=== PATIENT | female | born 1990 | race Caucasian/White ===

== ENCOUNTER 2016-12-29 13:26 | Inpatient (IN) ==
[2016-12-29 14:46] LABS: Basophils % 0.3 %; Eosinophils # 0.1 K/mcL (0.0-0.6); Eosinophils % 1.7 %; Hematocrit 36.5 % (35.3-44.9); Hemoglobin 12.1 g/dL (11.5-15.4); Immature Granulocytes % 0.3 % (0-4); Immature Platelets 3.2 % (1.1-6.1); Lymphocytes # 2.6 K/mcL (0.6-4.6); Mean Corpuscular HGB Conc 33.2 g/dL (31.6-35.5); Mean Corpuscular Hemoglobin 28.9 pg (28.0-33.3); Mean Corpuscular Volume 87.1 fL (83.0-100.0); Mean Platelet Volume 9.4 fL (9.4-12.4); Monocytes # 0.5 K/mcL (0.0-1.3); Monocytes % 6.9 %; Neutrophils # 3.8 K/mcL (1.6-8.9); Platelet Count 208 K/mcL (140-400); Red Blood Count 4.19 M/mcL (3.82-4.97); Segmented Neutrophils % 53.8 %
[2016-12-29 15:06] LABS: Alanine Aminotransferase 16 Units/L (0-55); Albumin 3.9 g/dL (3.5-5.0); Albumin/Globulin Ratio 1.3 (1.1-2.2); Alkaline Phosphatase 74 Units/L (38-126); Amylase 60 Units/L (25-125); Aspartate Amino Transferase 19 Units/L (5-34); BUN/Creatinine Ratio 13 (6-26); Bilirubin,Direct 0.2 mg/dL (0.0-0.5); Bilirubin,Indirect 0.2 mg/dL (0.0-1.2); Bilirubin,Total 0.4 mg/dL (0.2-1.2); Blood Urea Nitrogen 10 mg/dL (7-20); Calcium 9.3 mg/dL (8.6-10.8); Carbon Dioxide 26 mEq/L (19-29); Chloride 107 mEq/L (98-109); Globulin 3.1 g/dL (2.4-3.5); Glucose 72 mg/dL (70-99); Lipase 32 Units/L (8-78); Osmolality,Calculated 288 (280-300); Potassium 3.9 mEq/L (3.5-4.5); Sodium 140 mEq/L (136-145); eGFR For African Americans > 60 (> 60); eGFR For Non-African Americans > 60 (> 60)
--- NOTE | 2016-12-29 15:09 | Emergency Department Note ---
Disposition Clinical Impression: Acute cholecystitis, Abdominal pain, Gallstones Disposition: Admitted As Inpatient Referrals: NO,PCP [Non-Partnered Physician] - Forms: Work/School Release, ED Satisfaction Letter General Adult HPI - General Chief complaint: ED Abdominal Pain Stated complaint: abd pain, "I think its my gallbladder" Time Seen by Provider: 12/29/16 15:09 Source: patient - History of Present Illness HPI Narrative: 26-year-old female reports to the emergency department complaining of abdominal pain mostly in the right upper abdomen. She thinks she has a gallbladder problem. The patient's had no recent trauma or surgery. She denies any vaginal bleeding or discharge. There is no history of currently. The patient has not had bloody urine. She does not have urinary symptoms. She states she has a history of a kidney stone. She does not describe flank or back pain. She has had 3 C-sections but no other abdominal surgery. There is no history of fever rash or chest pain. She has a history of asthma. She has no shortness of breath currently. There is no history of leg swelling or pain or coughing up blood. No rashes on the abdomen or chest. No bloody stool E patient's bowel pattern has been normal. The patient has had no vomiting or diarrhea. The patient describes right upper abdominal pain which began last evening. Pain Scale: 4 - Related Data Home Medications Medication Instructions Recorded Confirmed Cetirizine HCl [Zyrtec] 5 mg PO DAILY 07/23/15 07/23/15 Levothyroxine [Synthroid] 175 mcg PO 0630 07/23/15 07/23/15 Vit/FA 1 each PO DAILY 07/23/15 07/23/15 Previous Rx's Medication Instructions Recorded MetroNIDAZOLE [Metrogel-Vaginal] 70 gm VG DAILY #1 gel.w.appl 07/23/15 Terconazole [Terazol 7] 45 gm VG HS #7 cream.appl 07/23/15 Docusate [Colace] 100 mg PO BID #60 capsule 09/05/15 Ibuprofen [Motrin] 600 mg PO Q6HR PRN #60 tablet 09/05/15 OxyCODONE/APAP 5/325 [Percocet 1 each PO Q6HR PRN #30 tablet 09/05/15 5/325] Benzonatate [Tessalon] 100 mg PO TID #30 capsule 02/26/16 Ibuprofen [Motrin] 600 mg PO TID PRN #30 tab 02/26/16 Promethazine/Codeine 5 ml PO Q4HR #240 ml 02/26/16 [Phenergan/Codeine] Allergies Allergy/AdvReac Type Severity Reaction Status Date / Time cephalexin [From Keflex] Allergy Hives Verified 07/23/15 17:50 loratadine [From Claritin] Allergy Hives Verified 08/31/15 21:52 All systems ED: reviewed and negative except as stated. Past Medical History - Past Medical History Medical history: Reports: asthma, thyroid disease, other Surgical history: Reports: other Psychiatric history: Reports: anxiety, depression - Social History Smoking Status: Former smoker Smokeless Tobacco Status: No Alcohol use: Reports: none Drug use: Reports: none Physical Exam - General Limitations: no limitations General appearance: alert, in no apparent distress - Head Head exam: atraumatic, normocephalic, normal inspection - Eye Eye exam: Present: normal appearance, PERRL, EOMI. Absent: scleral icterus, conjunctival injection, miosis, mydriasis - ENT ENT exam: normal exam, normal oropharynx, mucous membranes moist, normal external ear exam - Neck Neck exam: Present: normal inspection, full ROM, trachea midline - Chest Chest inspection: Present: symmetric chest wall rise. Absent: tenderness - Respiratory Respiratory exam: Present: normal lung sounds bilaterally. Absent: respiratory distress - Cardiovascular Cardiovascular exam: Present: regular rate, normal rhythm, normal heart sounds - Abdominal Exam Abdominal exam: Present: soft, tenderness, normal bowel sounds. Absent: distention, guarding, rebound, rigidity, Gautam's sign, Rovsing's sign, tenderness at McBurney's Point, pulsatile mass Abdominal tenderness: Present: RUQ, mild - Extremities Exam Extremities exam: Present: normal inspection, full ROM, normal capillary refill. Absent: tenderness, pedal edema, joint swelling, calf tenderness - Expanded Lower Extremity Exam Neurovascular/Tendon exam: Absent: motor deficit, sensory deficit, tendon deficit, extremity cold to touch - Back Exam Back exam: Present: normal inspection, full ROM. Absent: tenderness, CVA tenderness (R), CVA tenderness (L), vertebral tenderness - Neurological Exam Neurological exam: Present: alert, oriented X3, CN II-XII intact. Absent: motor sensory deficit - Psychiatric Psychiatric exam: Present: normal affect, normal mood - Skin Skin exam: Present: warm, dry, intact, normal color. Absent: rash, cyanosis, diaphoresis, erythema, pallor, mottled Course Vital Signs Temperature 97.7 F 12/29/16 13:32 Pulse Rate 68 12/29/16 13:32 Respiratory Rate 16 12/29/16 13:32 Blood Pressure 120/73 12/29/16 13:32 O2 Sat by Pulse Oximetry 100 12/29/16 13:32 Temperature 97.7 F 12/29/16 13:32 Pulse Rate 68 12/29/16 13:32 Respiratory Rate 16 12/29/16 13:32 Blood Pressure 120/73 12/29/16 13:32 O2 Sat by Pulse Oximetry 100 12/29/16 13:32 Oxygen Delivery Oxygen Delivery Room Air Medical Decision Making - MDM Narrative Medical decision making narrative: The patient describes significant right upper quadrant abdominal discomfort which began last evening. Her laboratory testing is unrevealing, however her CT shows concerning findings regarding acute cholecystitis. The patient reports she has been very uncomfortable. Anti-emetics and analgesics have been ordered as well as IV fluid. I discussed the case with Dr. Zhang general surgeon who will admit the patient for further evaluation and possible surgical intervention. A gram of Invanz was given IV. Normal saline was ordered. The patient is currently stable. She is agreeable to hospitalization and potential surgery. - Lab Data Lab results reviewed: Yes I reviewed the patient's lab results. Result diagrams: 12/29/16 14:39 12/29/16 14:39 Lab Results 12/29/16 12/29/16 12/29/16 Range/Units 14:39 14:39 15:16 WBC 7.1 (4.3-11.1) K/mcL RBC 4.19 (3.82-4.97) M/mcL Hgb 12.1 (11.5-15.4) g/dL Hct 36.5 (35.3-44.9) % MCV 87.1 (83.0-100.0) fL MCH 28.9 (28.0-33.3) pg MCHC 33.2 (31.6-35.5) g/dL RDW 13.0 (11.5-14.5) % Plt Count 208 (140-400) K/mcL MPV 9.4 (9.4-12.4) fL Immature Gran % 0.3 (0-4) % Seg Neutrophils % 53.8 % Lymphocytes % 37.0 % Monocytes % 6.9 % Eosinophils % 1.7 % Basophils % 0.3 % Neutrophils # 3.8 (1.6-8.9) K/mcL Lymphocytes # 2.6 (0.6-4.6) K/mcL Monocytes # 0.5 (0.0-1.3) K/mcL Eosinophils # 0.1 (0.0-0.6) K/mcL Basophils # 0.0 (0.0-0.2) K/mcL Immature Plt Fraction 3.2 (1.1-6.1) % Sodium 140 (136-145) mEq/L Potassium 3.9 (3.5-4.5) mEq/L Chloride 107 (98-109) mEq/L Carbon Dioxide 26 (19-29) mEq/L BUN 10 (7-20) mg/dL Creatinine 0.77 (0.57-1.11) mg/dL Est GFR ( Amer) > 60 (> 60) Est GFR (Non-Af Amer) > 60 (> 60) BUN/Creatinine Ratio 13 (6-26) Glucose 72 (70-99) mg/dL Calculated Osmolality 288 (280-300) Calcium 9.3 (8.6-10.8) mg/dL Total Bilirubin 0.4 (0.2-1.2) mg/dL Direct Bilirubin 0.2 (0.0-0.5) mg/dL Indirect Bilirubin 0.2 (0.0-1.2) mg/dL AST 19 (5-34) Units/L ALT 16 (0-55) Units/L Alkaline Phosphatase 74 (38-126) Units/L C-Reactive Protein 1 (Less than 5) mg/L Serum Total Protein 7.0 (6.0-8.3) g/dL Albumin 3.9 (3.5-5.0) g/dL Globulin 3.1 (2.4-3.5) g/dL Albumin/Globulin Ratio 1.3 (1.1-2.2) Amylase 60 (25-125) Units/L Lipase 32 (8-78) Units/L Urine Color Yellow (Yellow) Urine Clarity Cloudy A (Clear) Urine pH 6.0 (5.0-8.0) pH Units Ur Specific [place] 1.027 H (1.010-1.025) Urine Protein Negative (Neg-Trace) mg/dL Urine Glucose (UA) Normal (Normal) mg/dL Urine Ketones Negative (Negative) mg/dL Urine Blood Negative (Negative) Urine Nitrite Negative (Negative) Urine Bilirubin Negative (Negative) Urine Urobilinogen Normal (Normal) mg/dL Ur Leukocyte Esterase Negative (Negative) Urine Microscopic RBC 0-3 (0-3) per hpf Urine Microscopic WBC 0-3 (0-3) per hpf Ur Squamous Epith Cells Many H (None-Few) per lpf Calcium Oxalate Crystal Present Urine Bacteria Moderate H (None-Few) per hpf Hyaline Casts None Seen (None-Few) per lpf Urine Mucus Many H (Few) Ur Culture Indicated? NO (NO) Urine Test (Negative) 12/29/16 Range/Units 15:16 WBC (4.3-11.1) K/mcL RBC (3.82-4.97) M/mcL Hgb (11.5-15.4) g/dL Hct (35.3-44.9) % MCV (83.0-100.0) fL MCH (28.0-33.3) pg MCHC (31.6-35.5) g/dL RDW (11.5-14.5) % Plt Count (140-400) K/mcL MPV (9.4-12.4) fL Immature Gran % (0-4) % Seg Neutrophils % % Lymphocytes % % Monocytes % % Eosinophils % % Basophils % % Neutrophils # (1.6-8.9) K/mcL Lymphocytes # (0.6-4.6) K/mcL Monocytes # (0.0-1.3) K/mcL Eosinophils # (0.0-0.6) K/mcL Basophils # (0.0-0.2) K/mcL Immature Plt Fraction (1.1-6.1) % Sodium (136-145) mEq/L Potassium (3.5-4.5) mEq/L Chloride (98-109) mEq/L Carbon Dioxide (19-29) mEq/L BUN (7-20) mg/dL Creatinine (0.57-1.11) mg/dL Est GFR ( Amer) (> 60) Est GFR (Non-Af Amer) (> 60) BUN/Creatinine Ratio (6-26) Glucose (70-99) mg/dL Calculated Osmolality (280-300) Calcium (8.6-10.8) mg/dL Total Bilirubin (0.2-1.2) mg/dL Direct Bilirubin (0.0-0.5) mg/dL Indirect Bilirubin (0.0-1.2) mg/dL AST (5-34) Units/L ALT (0-55) Units/L Alkaline Phosphatase (38-126) Units/L C-Reactive Protein (Less than 5) mg/L Serum Total Protein (6.0-8.3) g/dL Albumin (3.5-5.0) g/dL Globulin (2.4-3.5) g/dL Albumin/Globulin Ratio (1.1-2.2) Amylase (25-125) Units/L Lipase (8-78) Units/L Urine Color (Yellow) Urine Clarity (Clear) Urine pH (5.0-8.0) pH Units Ur Specific [place] (1.010-1.025) Urine Protein (Neg-Trace) mg/dL Urine Glucose (UA) (Normal) mg/dL Urine Ketones (Negative) mg/dL Urine Blood (Negative) Urine Nitrite (Negative) Urine Bilirubin (Negative) Urine Urobilinogen (Normal) mg/dL Ur Leukocyte Esterase (Negative) Urine Microscopic RBC (0-3) per hpf Urine Microscopic WBC (0-3) per hpf Ur Squamous Epith Cells (None-Few) per lpf Calcium Oxalate Crystal Urine Bacteria (None-Few) per hpf Hyaline Casts (None-Few) per lpf Urine Mucus (Few) Ur Culture Indicated? (NO) Urine Test Negative (Negative) - Radiology Data Radiology results reviewed: Yes I reviewed the patient's radiology results.
[2016-12-29 15:27] LABS: Bilirubin,Urine Negative (Negative); Blood,Urine Negative (Negative); Clarity,Urine Cloudy (Clear); Color,Urine Yellow (Yellow); Glucose,Urine (UA) Normal (Normal); Ketones,Urine Negative (Negative); Leukocyte Esterase,Urine Negative (Negative); Nitrite,Urine Negative (Negative); Protein,Urine Negative (Neg-Trace); Specific Gravity,Urine 1.027 (1.010-1.025); Urobilinogen,Urine Normal (Normal)
[2016-12-29 15:30] LABS: Bacteria,Urine Moderate per hpf (None-Few); Hyaline Casts,Urine None Seen per lpf (None-Few); Squamous Epithelial Cell,Urine Many per lpf (None-Few); WBC,Urine 0-3 per hpf (0-3)
[2016-12-29 16:12] LABS: Mucus,Urine Many (Few)
[2016-12-29 16:13] LABS: Calcium Oxalate Crystals,Urine Present; RBC,Urine 0-3 per hpf (0-3)
[2016-12-29 17:53] LABS: C-Reactive Protein 1 mg/L (Less than 5)
[2016-12-29] MEDS ORDERED: *HR* HYDROmorphone (PF) 1 MG/ML SYRINGE IVP ONE (18:36)
[2016-12-29] MEDS ORDERED: 0.9 % Sodium Chloride 1,000 ML IVC ONE (18:36)
[2016-12-29] MEDS ORDERED: Ondansetron 4 MG/2 ML VIAL IVP ONE (18:36)
[2016-12-29] MEDS ORDERED: Ertapenem 1,000 MG in 0.9 % Sodium Chloride Mini Bag 100 ML IVPB ONE (19:00)
[2016-12-29] MEDS ORDERED: *HR* Morphine 2 MG/ML SYRINGE IVP PRN (20:47)
[2016-12-29] MEDS ORDERED: *HR* Promethazine 25 MG/ML VIAL IVP PRN (20:49)
[2016-12-29] MEDS: 0.9 % Sodium Chloride 1,000 ML IVC SCH (21:44)
--- NOTE | 2016-12-30 09:12 | General Surg History&Physical ---
<Davey Chen - Last Filed: 12/30/16 09:05> Date of Encounter: 12/30/16 Time of Encounter: 08:40 Assessment and Plan (1) Acute cholecystitis Current Visit: Yes Status: Acute Plan for laparascopic cholecystectomy today. Continue Ertapenem Continue IV fluids at 80ml/hr Continue anti-emetics Supportive care/pain control History of Present Illness Chief complaint: abdominal pain HPI: Ms. Cintron is a 26 year old female that presented to the ED for abdominal pain starting at approx 16:30 on 12/28/15. Patient states the pain is across uppper abdomen, but worse in the RUQ. Ms. Cintron states she has similar episodes 1-2 times per year for the past 7 years that typically resolve on their own within a day, this time it did not. She states the pain began while eating a poptart, pain is worse if she lays flat, instead of curling up. She admits to nausea, but denies vomiting, fever, dizziness, chest pain, shortness of breath, diarrhea , changes in stool. PMHx of exercise induced asthma, hypothyroidism, anxiety(not medicated). Past Med Surg Social Fam HX - Past Medical History Source: patient Medical history: asthma, thyroid disease, other Psychiatric history: anxiety, depression - Past Surgical History Surgical History: (x3), other (tubal ligation, tonsilectomy) - Social History Smoking Status: Former smoker (13+ years ago) Smokeless Tobacco Status: No Alcohol use: none Drug use: none - Family History Mother Hx Family GI Disorders: Yes Hx Family Endocrine Disorder: Yes (danielle) Father Family Member Ethnicity: Non- Living Status: Still Living Hx Family Cardiac Disorders: Yes Hx Family Respiratory Disorders: No Hx Family Cancer: No Hx Family GI Disorders: No Hx Family Endocrine Disorder: No Hx Family Neuromuscular Disorders: No Hx Family Neurologic Disorders: No Hx Family HEENT Disorders: No Hx Family Autoimmune Disorders: No Grandmother Hx Family Cancer: Yes (pancreatic) Maternal Name: maternal grandmother Hx Family Cancer: Yes (uterine) Medications and Allergies Cetirizine HCl [Zyrtec] 5 mg PO DAILY 07/23/15 [History] Levothyroxine [Synthroid] 175 mcg PO DAILY 07/23/15 [History] OxyCODONE/APAP 5/325 [Percocet 5/325 MG] 1 each PO Q6HR PRN #24 tablet 12/30/16 [Rx] Allergies cephalexin [From Keflex] Allergy (Verified 07/23/15 17:50) Hives loratadine [From Claritin] Allergy (Verified 08/31/15 21:52) Hives Review of Systems All systems PM: A 10-system review of systems was performed and is negative for pertinent findings except as documented above in the HPI. - Constitutional no chills, no fever(s) - EENT Nose, mouth and throat: no dizziness, no dysphagia - Cardiovascular no chest pain, no dyspnea - Respiratory no cough, no dyspnea - Gastrointestinal abdominal pain, nausea, no belching, no constipation, no diarrhea, no heartburn , no vomiting - Genitourinary Genitourinary: no dysuria, no flank pain, no hematuria - Musculoskeletal no back pain, no muscle weakness - Neurological no confusion, no dizziness, no syncope - Endocrine cold intolerance General Surgery Exam Initial Vital Signs Temp Pulse Resp BP Pulse Ox 97.7 F 68 16 120/73 100 12/29/16 13:32 12/29/16 13:32 12/29/16 13:32 12/29/16 13:32 12/29/16 13:32 - General physical appearance well developed, well nourished, no distress - Eyes normal ocular movement - ENT normal mucosa, atraumatic, normocephalic - Neck trachea midline - Respiratory normal respiratory effort, clear to auscultation - Cardiovascular Cardiovascular exam: Present: RRR - Abdomen Abdomen general surgery: Present: bowel sounds present, soft, tender (epigastric ) - Integumentary Integumentary general surgery: Present: warm and dry, no abnormal pigmentation - Neurologic Present: CN 2-12 grossly intact - Psychiatric Psychiatric general surgery: Present: A&Ox3, speech is normal, memory intact Results - Labs 12/29/16 14:39 12/29/16 14:39 Abnormal lab results Urine Clarity Cloudy (Clear) A 12/29/16 15:16 Ur Specific [place] 1.027 (1.010-1.025) H 12/29/16 15:16 Ur Squamous Epith Cells Many per lpf (None-Few) H 12/29/16 15:16 Urine Bacteria Moderate per hpf (None-Few) H 12/29/16 15:16 Urine Mucus Many (Few) H 12/29/16 15:16 All other labs normal. <Shekhar Zhang E - Last Filed: 12/31/16 15:36> Assessment and Plan (1) Acute cholecystitis Current Visit: Yes Status: Acute The assessment and plan as outlined above was discussed with the patient and/or family members who expressed understanding and agreement. All questions were answered. Plan for lap danielle with discharge today or tomorrow. History of Present Illness HPI: Ms. Cintron is a 26 year old female Review of Systems All systems PM: A 10-system review of systems was performed and is negative for pertinent findings except as documented above in the HPI. General Surgery Exam Initial Vital Signs Temp Pulse Resp BP Pulse Ox 97.7 F 68 16 120/73 100 12/29/16 13:32 12/29/16 13:32 12/29/16 13:32 12/29/16 13:32 12/29/16 13:32 Results - Labs 12/31/16 11:47 12/31/16 11:47 Abnormal lab results WBC 12.5 K/mcL (4.3-11.1) H D 12/31/16 11:47 Hct 35.1 % (35.3-44.9) L 12/31/16 11:47 Neutrophils # 10.6 K/mcL (1.6-8.9) H 12/31/16 11:47 BUN 6 mg/dL (7-20) L 12/31/16 11:47 Glucose 108 mg/dL (70-99) H 12/31/16 11:47 Calcium 8.4 mg/dL (8.6-10.8) L 12/31/16 11:47 Total Bilirubin 1.4 mg/dL (0.2-1.2) H D 12/31/16 11:47 AST 62 Units/L (5-34) H 12/31/16 11:47 ALT 59 Units/L (0-55) H 12/31/16 11:47 Urine Clarity Cloudy (Clear) A 12/29/16 15:16 Ur Specific [place] 1.027 (1.010-1.025) H 12/29/16 15:16 Ur Squamous Epith Cells Many per lpf (None-Few) H 12/29/16 15:16 Urine Bacteria Moderate per hpf (None-Few) H 12/29/16 15:16 Urine Mucus Many (Few) H 12/29/16 15:16 Diabetes panel 12/31/16 Range/Units 11:47 Sodium 138 (136-145) mEq/L Potassium 3.7 (3.5-4.5) mEq/L Chloride 106 (98-109) mEq/L Carbon Dioxide 25 (19-29) mEq/L BUN 6 L (7-20) mg/dL Creatinine 0.72 (0.57-1.11) mg/dL Glucose 108 H (70-99) mg/dL Calcium 8.4 L (8.6-10.8) mg/dL AST 62 H (5-34) Units/L ALT 59 H (0-55) Units/L Alkaline Phosphatase 72 (38-126) Units/L Albumin 3.5 (3.5-5.0) g/dL Calcium panel 12/31/16 Range/Units 11:47 Calcium 8.4 L (8.6-10.8) mg/dL Albumin 3.5 (3.5-5.0) g/dL Pituitary panel 12/31/16 Range/Units 11:47 Sodium 138 (136-145) mEq/L Potassium 3.7 (3.5-4.5) mEq/L Chloride 106 (98-109) mEq/L Carbon Dioxide 25 (19-29) mEq/L BUN 6 L (7-20) mg/dL Creatinine 0.72 (0.57-1.11) mg/dL Glucose 108 H (70-99) mg/dL Calcium 8.4 L (8.6-10.8) mg/dL Adrenal panel 12/31/16 Range/Units 11:47 Sodium 138 (136-145) mEq/L Potassium 3.7 (3.5-4.5) mEq/L Chloride 106 (98-109) mEq/L Carbon Dioxide 25 (19-29) mEq/L BUN 6 L (7-20) mg/dL Creatinine 0.72 (0.57-1.11) mg/dL Glucose 108 H (70-99) mg/dL Calcium 8.4 L (8.6-10.8) mg/dL Total Bilirubin 1.4 H D (0.2-1.2) mg/dL AST 62 H (5-34) Units/L ALT 59 H (0-55) Units/L Alkaline Phosphatase 72 (38-126) Units/L Albumin 3.5 (3.5-5.0) g/dL All other labs normal. - Attending Attestation I examined this patient and my medical decision-making was reviewed with the SPECIAL SERVICES DIRECTOR/PA/Advanced Practice Nurse/Resident Physician. I agree with the documented findings, disposition and treatment plan as described except to the extent set forth below.
[2016-12-30] MEDS ORDERED: Ringers Solution, Lactated 1,000 ML ONE (12:23)
--- NOTE | 2016-12-30 12:41 | Operative Note ---
Date of procedure: 12/30/16 Pre-op diagnosis: Acute cholecystitis Post-op diagnosis: same Procedure: Laparoscopic cholecystectomy with cholangiogram Anesthesia: RUDY Surgeon: Shekhar Zhang Estimated blood loss (cc): 10 Specimen: gb Condition: stable Disposition: same day Procedure in Detail: After informed consent this patient was taken the operating room placed supine position. After adequate sedation anesthesia the abdomen was prepped and draped. A proper timeout was performed. Two towel clamps are placed at the umbilicus and a Veres needle was inserted into the abdomen. A 5 mm incision was made at the umbilicus. A 12 mm incision was made in the subxiphoid region. Two 5 mm incisions were made in the right upper quadrant that were 4 finger breadths and 6 finger breadths below the costal margin. The gallbladder was identified, retracted anteriorly and cephalad, and the infundibulum was skeletonized. The cystic duct was easily identified and was dissected free. A ductotomy was created in the cystic duct. A taut catheter was placed within the cystic duct and clipped. A cholangiogram was performed. Contrast filled the cystic duct, common hepatic duct, hepatic radicles, and the distal common bile duct. There was flow of contrast into the duodenum. Once this was confirmed the clippers removed, the taut catheter was removed as well, and the cystic duct was clipped distally. The cystic duct was then transected with scissors. The gallbladder was resected off the liver surface. There was excellent hemostasis. The gallbladder was then retrieved through the 12 mm cannula site. At this point the abdomen was suctioned dry and the pneumoperitoneum was then evacuated. All ports were removed. The 12 mm cannula site was closed with an 0 Vicryl suture in [id number] fashion. The skin was closed with 4-0 Vicryl suture. Dermabond was placed as well. All instrument counts and needle counts are correct in the operation. She tolerated the procedure well and was transferred to the PACU in stable condition.
[2016-12-30] MEDS ORDERED: *HR* Propofol 200 MG/20 ML VIAL IVP ONE (13:06)
[2016-12-30] MEDS ORDERED: *HR* Midazolam HCl 2 MG/2 ML VIAL ONE (13:06)
[2016-12-30] MEDS ORDERED: *HR* Succinylcholine 200 MG/10 ML VIAL IVP ONE (13:06)
[2016-12-30] MEDS ORDERED: *HR* FentaNYL (PF) 100 MCG/2 ML VIAL ONE (13:06)
[2016-12-30] MEDS ORDERED: *HR* Rocuronium Bromide 50 MG/5 ML VIAL ONE (13:06)
[2016-12-30] MEDS ORDERED: Lidocaine -MPF 2% 2 ML VIAL ONE (13:06)
[2016-12-30] MEDS ORDERED: Albuterol 2.5 MG/3 ML NEBULIZER IH ONE (13:15)
[2016-12-30] MEDS ORDERED: Albuterol 2.5 MG/3 ML NEBULIZER ONE (13:16)
--- NOTE | 2016-12-30 13:17 | Anesthesia Evaluation PreOp ---
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 History: Denies Any Significant HX Other Medical History: Thyroid Anesthesia History: No Prior Anesthetic Complications, Past Anesthesia Test: Negative (12/29/2016) Alcohol Use: none Drug use: none Medications and Allergies Cetirizine HCl [Zyrtec] 5 mg PO DAILY 07/23/15 [History] Levothyroxine [Synthroid] 175 mcg PO 0630 07/23/15 [History] MetroNIDAZOLE [Metrogel-Vaginal] 70 gm VG DAILY #1 gel.w.appl 07/23/15 [Rx] Vit/FA 1 each PO DAILY 07/23/15 [History] Terconazole [Terazol 7] 45 gm VG HS #7 cream.appl 07/23/15 [Rx] Docusate [Colace] 100 mg PO BID #60 capsule 09/05/15 [Rx] Ibuprofen [Motrin] 600 mg PO Q6HR PRN #60 tablet 09/05/15 [Rx] OxyCODONE/APAP 5/325 [Percocet 5/325] 1 each PO Q6HR PRN #30 tablet 09/05/15 [Rx ] Benzonatate [Tessalon] 100 mg PO TID #30 capsule 02/26/16 [Rx] Ibuprofen [Motrin] 600 mg PO TID PRN #30 tab 02/26/16 [Rx] Promethazine/Codeine [Phenergan/Codeine] 5 ml PO Q4HR #240 ml 02/26/16 [Rx] Allergies cephalexin [From Keflex] Allergy (Verified 07/23/15 17:50) Hives loratadine [From Claritin] Allergy (Verified 08/31/15 21:52) Hives - Meds/Allergy Pre-op Review Medications Reviewed: Yes Allergies Reviewed: Yes Beta Blockers on Current Med List: No Anesthesia Results - Labs 12/29/16 14:39 12/29/16 14:39 Anesthesia Exam Vital Signs/O2 Sat, Most Current Temp Pulse Resp BP Pulse Ox 97.8 F 72 14 110/70 100 12/30/16 07:45 12/30/16 07:45 12/30/16 07:45 12/30/16 07:45 12/30/16 07:45 Height: 5'5''/1.65 m Weight: 203 lbs/92.2 kg NPO (# of Hours): 8 Pain Scale: 3 Pain Scale Used: Numeric (1 - 10) - HEENT Pupil (Motor): EOMI Mallampati: II Teeth: Normal (chipped upper left molar) Oral Opening: Greater than 3 - MACHINE LACER LOC: Oriented MACHINE LACER Motor: Normal RUE, Normal LUE, Normal RLE, Normal LLE, Normal Face MACHINE LACER Sensory: Normal: RUE, LUE, RLE, LLE, Face - Cardiac Rhythm: Regular Murmur: None - Pulmonary Breath Sounds: bilateral Clear Respiratory Effort: Symmetrical Anesthesia Assess/Plan ASA Score: 2 Modified Stefani Scale for Level of Consciousness: Cooperative, oriented, and tranquil Anesthetic Plan: General Monitoring Plan: Standard Monitors Recovery Plan: PACU
[2016-12-30] MEDS ORDERED: Ondansetron 4 MG/2 ML VIAL IVP ONE ×2 (13:20→15:34)
[2016-12-30] MEDS ORDERED: Ondansetron 4 MG/2 ML VIAL ONE (13:48)
[2016-12-30] MEDS ORDERED: Dexamethasone 4 MG/ML VIAL ONE (13:48)
[2016-12-30] MEDS ORDERED: *HR* Morphine 10 MG/ML VIAL ONE (13:49)
[2016-12-30] MEDS ORDERED: Neostigmine Methylsulfate 3 MG/3 ML SYRINGE ONE (14:21)
--- NOTE | 2016-12-30 14:45 | Discharge Summary ---
Date of Encounter: 12/30/16 - Discharge Diagnosis (1) Acute cholecystitis Priority: Primary Status: Acute - Discharge Medications Prescriptions: OxyCODONE/APAP 5/325 [Percocet 5/325 MG] 1 each PO Q6HR PRN #24 tablet PRN Reason: Pain Home Medications: Cetirizine HCl [Zyrtec] 5 mg PO DAILY 07/23/15 [History] Levothyroxine [Synthroid] 175 mcg PO DAILY 07/23/15 [History] OxyCODONE/APAP 5/325 [Percocet 5/325 MG] 1 each PO Q6HR PRN #24 tablet 12/30/16 [Rx] Allergies/Adverse Reactions: Allergies cephalexin [From Keflex] Allergy (Verified 07/23/15 17:50) Hives loratadine [From Claritin] Allergy (Verified 08/31/15 21:52) Hives General Surgery Exam Initial Vital Signs Temp Pulse Resp BP Pulse Ox 97.7 F 68 16 120/73 100 12/29/16 13:32 12/29/16 13:32 12/29/16 13:32 12/29/16 13:32 12/29/16 13:32 Date of admission: 12/29/16 19:24 Primary care physician: Lyly Kearns CNP Discharging clinician: Shekhar Zhang Anticipated date of discharge: 12/30/16 - Patient Status Disposition: Home, Self-Care Condition: Good Functional capacity at discharge: independent ambulation Overall status at discharge: patient is progressing back to baseline - Discharge Instructions Follow Up With: Lyly Kearns CNP [Primary Care Provider] - Additional Instructions: #1 may shower, no tub bath for 2 weeks #2 wash incisions with soap and water and pat dry daily #3 no lifting, pushing, pulling more than 15 pounds for the next 2 weeks #4 no driving until off narcotics for 24 hours and able to safely react in the car #5 may climb stairs Follow up with outpatient surgery in 2 weeks. - Diet and Activity Activity: increase activity as tolerated Diet: advance to your usual diet - Hospital Course Hospital course: Ms. Cintron is a 26 year old female that presented to the ED for abdominal pain starting at approx 16:30 on 12/28/15. Patient states the pain is across uppper abdomen, but worse in the RUQ. Ms. Cinrton states she has similar episodes 1-2 times per year for the past 7 years that typically resolve on their own within a day, this time it did not. She states the pain began while eating a poptart, pain is worse if she lays flat, instead of curling up. She admits to nausea, but denies vomiting, fever, dizziness, chest pain, shortness of breath, diarrhea , changes in stool. S/p Laparoscopic cholecystectomy with cholangiogram by Dr. Zhang on 12/30/16. Follow up with outpatient surgery in 2 weeks. - Time Spent with Patient Total time spent providing and/or coordinating discharge services: Less than 30 minutes Labs on day of discharge: Labs from last 24 hours 12/30/16 05:07 POC Glucose 84 - Impressions ITS Impressions Cholangiogram,Operative 12/30/16 00:00 IMPRESSION: No evidence for biliary ductal obstruction Questionable extraluminal contrast. D/ / Almas Nunez MD / Almas Nunez MD Interpreting Provider: Almas Nunez MD
[2016-12-30] MEDS: *HR* HYDROmorphone (PF) 1 MG/ML SYRINGE IVP PRN ×2 (14:47→14:54)
--- NOTE | 2016-12-30 15:33 | Anesthesia Evaluation Post Op ---
Date of Encounter: 12/30/16 Time of Encounter: 15:13 - Vital Signs Vital Signs: Vital Signs/O2 Sat, Most Current Temp Pulse Resp BP Pulse Ox 97.5 F L 56 16 100/70 97 12/30/16 15:17 12/30/16 15:17 12/30/16 15:17 12/30/16 15:17 12/30/16 15:17 - Lungs Lungs: Clear Ascult./Percussion - Airway Airway: Non-obstructed - Cardiovascular Regular Rate - Mental Status Mental Status: Asleep with brisk response to light stimulation - Pain Pain Scale: 3 Pain Scale used: Numeric (1 - 10) - Nausea Vomiting Nausea Vomiting: Not Present - Hydration Hydration: NPO, Has not voided - Discharge PostOp Status: Transfer Patient to floor
[2016-12-30] MEDS: *HR* Promethazine 25 MG/ML VIAL IVP PRN (15:43)
[2016-12-30] MEDS: *HR* OxyCODONE/APAP 5/325 TABLET PO PRN ×2 (15:43→22:57)
[2016-12-30] MEDS: *HR* Morphine 2 MG/ML SYRINGE IVP PRN ×2 (16:58→20:00)
[2016-12-30] MEDS ORDERED: Ertapenem 1,000 MG in 0.9 % Sodium Chloride Mini Bag 100 ML IVPB SCH (19:00)
[2016-12-30] MEDS: 0.9 % Sodium Chloride 1,000 ML IVC SCH ×3 (20:23→21:10)
[2016-12-31] MEDS: *HR* Morphine 2 MG/ML SYRINGE IVP PRN ×2 (02:03→07:43)
[2016-12-31] MEDS: *HR* Promethazine 25 MG/ML VIAL IVP PRN ×3 (03:29→22:11)
[2016-12-31] MEDS: *HR* OxyCODONE/APAP 5/325 TABLET PO PRN (05:55)
[2016-12-31 11:53] LABS: Basophils % 0.1 %; Hematocrit 35.1 % (35.3-44.9); Hemoglobin 11.6 g/dL (11.5-15.4); Immature Granulocytes % 0.5 % (0-4); Lymphocytes # 0.9 K/mcL (0.6-4.6); Lymphocytes % 6.9 %; Mean Corpuscular Volume 87.8 fL (83.0-100.0); Mean Platelet Volume 9.6 fL (9.4-12.4); Monocytes # 0.9 K/mcL (0.0-1.3); Monocytes % 7.4 %; Neutrophils # 10.6 K/mcL (1.6-8.9); Platelet Count 169 K/mcL (140-400); Red Cell Distribution Width 13.1 % (11.5-14.5); Segmented Neutrophils % 85.1 %
[2016-12-31 12:07] LABS: Alanine Aminotransferase 59 Units/L (0-55); Albumin 3.5 g/dL (3.5-5.0); Albumin/Globulin Ratio 1.2 (1.1-2.2); Alkaline Phosphatase 72 Units/L (38-126); Aspartate Amino Transferase 62 Units/L (5-34); BUN/Creatinine Ratio 8 (6-26); Blood Urea Nitrogen 6 mg/dL (7-20); Calcium 8.4 mg/dL (8.6-10.8); Carbon Dioxide 25 mEq/L (19-29); Chloride 106 mEq/L (98-109); Globulin 2.9 g/dL (2.4-3.5); Glucose 108 mg/dL (70-99); Osmolality,Calculated 284 (280-300); Potassium 3.7 mEq/L (3.5-4.5); Sodium 138 mEq/L (136-145); Total Protein 6.4 g/dL (6.0-8.3); eGFR For African Americans > 60 (> 60); eGFR For Non-African Americans > 60 (> 60)
[2016-12-31 12:09] LABS: Bilirubin,Total 1.4 mg/dL (0.2-1.2)
[2016-12-31] MEDS: *HR* OxyCODONE/APAP 10/325 TABLET PO PRN ×2 (12:41→17:23)
[2016-12-31] MEDS: Simethicone 80 MG TAB.CHEW PO SCH ×2 (12:42→20:09)
[2016-12-31] MEDS: Ibuprofen 800 MG TABLET PO SCH ×3 (12:45→23:10)
--- NOTE | 2016-12-31 14:28 | General Surgery Progress Note ---
Date of Encounter: 12/31/16 Time of Encounter: 10:00 - Assessment and Plan (1) Acute cholecystitis Current Visit: Yes Status: Acute POD #1 laparoscopic cholecystectomy Supportive care/pain control Regular diet- patient states that she is not tolerating well due to nausea IV fluids Ambulate in hallways Antiemetics as necessary Repeat am labs Subjective Patient reports: still having pain (RUQ, Umbilical), tolerating liquids well, voiding w/o difficulty, no flatus, no bowel movement, nausea, afebrile, other ( complaints of shoulder pain) Objective Vital Signs - Last 8 Hours Temp Pulse Resp BP Pulse Ox 12/31/16 09:55 97.9 F 77 16 102/71 96 12/31/16 06:48 98.2 F 82 14 112/71 93 L Intake and Output 12/30/16 12/31/16 12/31/16 23:59 07:59 15:59 Intake Total 530 / 530 120 / 120 0 / 0 Output Total 900 / 900 900 / 900 300 / 300 Balance -370 / -370 -780 / -780 -300 / -300 Intake: Oral 530 / 530 120 / 120 0 / 0 Output: Urine 900 / 900 900 / 900 300 / 300 Other: Meal Breakfast Percent of Meal Consumed 0% # Voids 2 Weight 92.3 kg Patient Weight 12/31/16 23:59 Weight 92.3 kg - General physical appearance well developed, well nourished, no distress - Eyes normal ocular movement - ENT normal mucosa, atraumatic, normocephalic - Neck Neck exam: trachea midline - Respiratory normal respiratory effort, clear to auscultation - Cardiovascular Cardiovascular exam: Present: RRR - Abdomen Abdomen: Present: bowel sounds present, soft, tender (expected post-operative tenderness) - Incision Incision: Present: clean and dry, intact - Neurologic CN 2-12 grossly intact - Psychiatric oriented to time, oriented to person, oriented to place, speech is normal, memory intact - Labs 12/31/16 11:47 12/31/16 11:47 Diabetes panel 12/31/16 Range/Units 11:47 Sodium 138 (136-145) mEq/L Potassium 3.7 (3.5-4.5) mEq/L Chloride 106 (98-109) mEq/L Carbon Dioxide 25 (19-29) mEq/L BUN 6 L (7-20) mg/dL Creatinine 0.72 (0.57-1.11) mg/dL Glucose 108 H (70-99) mg/dL Calcium 8.4 L (8.6-10.8) mg/dL AST 62 H (5-34) Units/L ALT 59 H (0-55) Units/L Alkaline Phosphatase 72 (38-126) Units/L Albumin 3.5 (3.5-5.0) g/dL Calcium panel 12/31/16 Range/Units 11:47 Calcium 8.4 L (8.6-10.8) mg/dL Albumin 3.5 (3.5-5.0) g/dL Pituitary panel 12/31/16 Range/Units 11:47 Sodium 138 (136-145) mEq/L Potassium 3.7 (3.5-4.5) mEq/L Chloride 106 (98-109) mEq/L Carbon Dioxide 25 (19-29) mEq/L BUN 6 L (7-20) mg/dL Creatinine 0.72 (0.57-1.11) mg/dL Glucose 108 H (70-99) mg/dL Calcium 8.4 L (8.6-10.8) mg/dL Adrenal panel 12/31/16 Range/Units 11:47 Sodium 138 (136-145) mEq/L Potassium 3.7 (3.5-4.5) mEq/L Chloride 106 (98-109) mEq/L Carbon Dioxide 25 (19-29) mEq/L BUN 6 L (7-20) mg/dL Creatinine 0.72 (0.57-1.11) mg/dL Glucose 108 H (70-99) mg/dL Calcium 8.4 L (8.6-10.8) mg/dL Total Bilirubin 1.4 H D (0.2-1.2) mg/dL AST 62 H (5-34) Units/L ALT 59 H (0-55) Units/L Alkaline Phosphatase 72 (38-126) Units/L Albumin 3.5 (3.5-5.0) g/dL - VTE Documentation of Mechanical Device: Intermittent pneumatic compression device Consult Discharge Plan - Plan Additional Instructions: #1 may shower, no tub bath for 2 weeks #2 wash incisions with soap and water and pat dry daily #3 no lifting, pushing, pulling more than 15 pounds for the next 2 weeks #4 no driving until off narcotics for 24 hours and able to safely react in the car #5 may climb stairs Follow up with outpatient surgery in 2 weeks. Referrals: Lyly Kearns CNP [Primary Care Provider] - Prescriptions: OxyCODONE/APAP 5/325 [Percocet 5/325 MG] 1 each PO Q6HR PRN #24 tablet PRN Reason: Pain - Attending Attestation I examined this patient and my medical decision-making was reviewed with the FASHION ADVISER/PA/Advanced Practice Nurse/Resident Physician. I agree with the documented findings, disposition and treatment plan as described except to the extent set forth below.
[2016-12-31] MEDS: *HR* LORazepam 0.5 MG TABLET PO PRN (16:18)
[2017-01-01] MEDS: 0.9 % Sodium Chloride 1,000 ML IVC SCH ×2 (01:48→15:37)
[2017-01-01] MEDS: *HR* LORazepam 0.5 MG TABLET PO PRN (03:55)
[2017-01-01] MEDS: *HR* OxyCODONE/APAP 10/325 TABLET PO PRN ×3 (03:55→19:56)
[2017-01-01 06:04] LABS: Basophils % 0.3 %; Eosinophils % 0.3 %; Hematocrit 33.3 % (35.3-44.9); Hemoglobin 11.1 g/dL (11.5-15.4); Immature Granulocytes % 0.4 % (0-4); Lymphocytes # 1.3 K/mcL (0.6-4.6); Lymphocytes % 13.1 %; Mean Corpuscular HGB Conc 33.3 g/dL (31.6-35.5); Mean Corpuscular Hemoglobin 29.3 pg (28.0-33.3); Mean Corpuscular Volume 87.9 fL (83.0-100.0); Mean Platelet Volume 10.2 fL (9.4-12.4); Monocytes # 0.9 K/mcL (0.0-1.3); Monocytes % 8.5 %; Neutrophils # 7.8 K/mcL (1.6-8.9); Platelet Count 154 K/mcL (140-400); Red Blood Count 3.79 M/mcL (3.82-4.97); Red Cell Distribution Width 13.5 % (11.5-14.5); Segmented Neutrophils % 77.4 %
[2017-01-01 06:35] LABS: Albumin 3.2 g/dL (3.5-5.0); Albumin/Globulin Ratio 1.1 (1.1-2.2); Bilirubin,Indirect 1.2 mg/dL (0.0-1.2); Globulin 2.9 g/dL (2.4-3.5); Total Protein 6.1 g/dL (6.0-8.3)
[2017-01-01 06:38] LABS: Bilirubin,Direct 1.5 mg/dL (0.0-0.5); Bilirubin,Total 2.7 mg/dL (0.2-1.2)
[2017-01-01] MEDS: Simethicone 80 MG TAB.CHEW PO SCH ×3 (08:59→19:55)
[2017-01-01] MEDS: Ibuprofen 800 MG TABLET PO SCH ×3 (08:59→23:48)
--- NOTE | 2017-01-01 11:05 | General Surgery Progress Note ---
Date of Encounter: 01/01/17 Time of Encounter: 10:00 - Assessment and Plan (1) Acute cholecystitis Current Visit: Yes Status: Acute POD #2 laparoscopic cholecystectomy Supportive care/pain control Regular diet- no appetite IV fluids at 80ml/hour Ambulate in hallways Antiemetics as necessary Repeat am labs (2) Hyperbilirubinemia Current Visit: Yes Status: Acute TB 2.7 today from 1.4 yesterday HIDA scan to evaluate for a leak/obstruction (3) DVT prophylaxis Current Visit: Yes Status: Acute Hepari 5,000 units SQ twice daily for DVT prophylaxis Subjective Patient reports: feels better, still having pain, pain is less, voiding w/o difficulty (patient notes that urine is dark today), no flatus, no bowel movement, afebrile Objective Vital Signs - Last 8 Hours Temp Pulse Resp BP Pulse Ox 01/01/17 03:52 98.5 F 78 15 110/74 96 Intake and Output 12/31/16 01/01/17 01/01/17 23:59 07:59 15:59 Intake Total 1000 / 1000 0 / 0 586 / 586 Output Total 1100 / 1100 550 / 550 400 / 400 Balance -100 / -100 -550 / -550 186 / 186 Intake: IV Fluids 1000 / 1000 586 / 586 0.9 % Sodium Chloride 1, 1000 / 1000 586 / 586 000 ML @ 80 mls/hr IVC . [id number] [facility] Rx#: [id number] Oral 0 / 0 0 / 0 0 / 0 Output: Urine 1100 / 1100 550 / 550 400 / 400 Other: Meal Dinner Breakfast Percent of Meal Consumed 0% 0% # Voids 1 Weight 92 kg Patient Weight 01/01/17 23:59 Weight 92 kg - General physical appearance well developed, well nourished, no distress, moderate pain - Eyes normal ocular movement - ENT normal mucosa, atraumatic, normocephalic - Neck Neck exam: trachea midline - Respiratory normal respiratory effort, clear to auscultation - Cardiovascular Cardiovascular exam: Present: RRR - Abdomen Abdomen: Present: bowel sounds present, soft, tender (expected post-operative tenderness (improving)) - Incision Incision: Present: clean and dry, intact - Integumentary no rash - Neurologic CN 2-12 grossly intact - Psychiatric oriented to time, oriented to person, oriented to place, speech is normal, memory intact - Labs 01/01/17 05:34 12/31/16 11:47 Diabetes panel 12/31/16 01/01/17 Range/Units 11:47 05:34 Sodium 138 (136-145) mEq/L Potassium 3.7 (3.5-4.5) mEq/L Chloride 106 (98-109) mEq/L Carbon Dioxide 25 (19-29) mEq/L BUN 6 L (7-20) mg/dL Creatinine 0.72 (0.57-1.11) mg/dL Glucose 108 H (70-99) mg/dL Calcium 8.4 L (8.6-10.8) mg/dL AST 62 H 38 H (5-34) Units/L ALT 59 H 52 (0-55) Units/L Alkaline Phosphatase 72 74 (38-126) Units/L Albumin 3.5 3.2 L (3.5-5.0) g/dL Calcium panel 12/31/16 01/01/17 Range/Units 11:47 05:34 Calcium 8.4 L (8.6-10.8) mg/dL Albumin 3.5 3.2 L (3.5-5.0) g/dL Pituitary panel 12/31/16 Range/Units 11:47 Sodium 138 (136-145) mEq/L Potassium 3.7 (3.5-4.5) mEq/L Chloride 106 (98-109) mEq/L Carbon Dioxide 25 (19-29) mEq/L BUN 6 L (7-20) mg/dL Creatinine 0.72 (0.57-1.11) mg/dL Glucose 108 H (70-99) mg/dL Calcium 8.4 L (8.6-10.8) mg/dL Adrenal panel 12/31/16 01/01/17 Range/Units 11:47 05:34 Sodium 138 (136-145) mEq/L Potassium 3.7 (3.5-4.5) mEq/L Chloride 106 (98-109) mEq/L Carbon Dioxide 25 (19-29) mEq/L BUN 6 L (7-20) mg/dL Creatinine 0.72 (0.57-1.11) mg/dL Glucose 108 H (70-99) mg/dL Calcium 8.4 L (8.6-10.8) mg/dL Total Bilirubin 1.4 H D 2.7 H D (0.2-1.2) mg/dL AST 62 H 38 H (5-34) Units/L ALT 59 H 52 (0-55) Units/L Alkaline Phosphatase 72 74 (38-126) Units/L Albumin 3.5 3.2 L (3.5-5.0) g/dL - VTE Documentation of Mechanical Device: Intermittent pneumatic compression device Consult Discharge Plan - Plan Additional Instructions: #1 may shower, no tub bath for 2 weeks #2 wash incisions with soap and water and pat dry daily #3 no lifting, pushing, pulling more than 15 pounds for the next 2 weeks #4 no driving until off narcotics for 24 hours and able to safely react in the car #5 may climb stairs Follow up with outpatient surgery in 2 weeks. Referrals: Lyly Kearns, TELECOM SPECIALIST [Primary Care Provider] - Prescriptions: OxyCODONE/APAP 5/325 [Percocet 5/325 MG] 1 each PO Q6HR PRN #24 tablet PRN Reason: Pain - Attending Attestation I examined this patient and my medical decision-making was reviewed with the MARKET RESEARCH WORKER/PA/Advanced Practice Nurse/Resident Physician. I agree with the documented findings, disposition and treatment plan as described except to the extent set forth below.
[2017-01-01] MEDS: *HR* Promethazine 25 MG/ML VIAL IVP PRN (12:58)
[2017-01-01] MEDS ORDERED: *HR* HYDROmorphone (PF) 1 MG/ML SYRINGE IVP PRN (13:57)
[2017-01-01 14:21] LABS: INR 1.3; Prothrombin Time 14.6 Seconds (9.4-12.1)
[2017-01-01] MEDS: *HR* Heparin 5,000 UNIT/ML VIAL SQ SCH (18:17)
[2017-01-02] MEDS: 0.9 % Sodium Chloride 1,000 ML IVC SCH ×2 (04:34→17:46)
[2017-01-02] MEDS: *HR* OxyCODONE/APAP 10/325 TABLET PO PRN ×2 (05:35→13:28)
[2017-01-02 06:28] LABS: Albumin/Globulin Ratio 0.8 (1.1-2.2); Bilirubin,Direct 1.7 mg/dL (0.0-0.5); Bilirubin,Indirect 0.9 mg/dL (0.0-1.2); Total Protein 5.5 g/dL (6.0-8.3)
[2017-01-02 06:29] LABS: Albumin 2.5 g/dL (3.5-5.0); Bilirubin,Total 2.6 mg/dL (0.2-1.2)
[2017-01-02] MEDS: *HR* Heparin 5,000 UNIT/ML VIAL SQ SCH (06:57)
--- NOTE | 2017-01-02 09:26 | Gastroenterology Consult Note ---
<Denise Haynes - Last Filed: 01/02/17 11:54> Date of Encounter: 01/02/17 Time of Encounter: 11:05 - Assessment and plan (1) Abdominal pain Current Visit: Yes Status: Acute Assessment and plan: s/p cholecystectomy 12/30/16. Imaging reveals possible bile leak. ERCP to evaluate. Qualifiers: Abdominal location: right upper quadrant Qualified Code(s): R10.11 - Right upper quadrant pain (2) Hyperbilirubinemia Current Visit: Yes Status: Acute Assessment and plan: 2ndary to post-danielle bile leak. ERCP - Time Spent With Patient Total time spent is greater than 50% in coordination of care (as documented) at patient's floor/unit and/or counseling patient: less than 15 minutes GI History of Present Illness - Data of Consult Patient: new to practice Consult date: 01/02/17 Requesting Physician: Shekhar Zhang DO - Consult Narrative Reason for consult: Suspected bile leak post-cholecystectomy History of present illness: Ms. Cintron is a 26 year old female with PMH of Csection x 3, asthma, kidney stone presents with R upper abdominal pain. She was evaluated and underwent lap danielle with Dr. Zhang 12/30/16. POD #2 imaging revealed a possible bile leak, patient bilirubin was elevated at 2.7 with residual RUQ abdominal pain. Patient reports abdominal pain continued post danielle, has lessened somewhat today. She has had no appetite over the past several months, however, weight is stable. No other GI issues admitted during todays evaluation. Colonoscopy: None noted EGD: None noted Past Med Surg Social Fam HX - Past Medical History Medical history: asthma, thyroid disease, other Psychiatric history: anxiety, depression - Past Surgical History Surgical History: (x3), other (tubal ligation, tonsilectomy) - Social History Smoking Status: Former smoker (13+ years ago) Smokeless Tobacco Status: No Alcohol use: none Drug use: none - Family History Grandmother Hx Family Cancer: Yes (pancreatic) Maternal Name: maternal grandmother Hx Family Cancer: Yes (uterine) Mother Hx Family GI Disorders: Yes Hx Family Endocrine Disorder: Yes (danielle) Father Family Member Ethnicity: Non- Living Status: Still Living Hx Family Cardiac Disorders: Yes Hx Family Respiratory Disorders: No Hx Family Cancer: No Hx Family GI Disorders: No Hx Family Endocrine Disorder: No Hx Family Neuromuscular Disorders: No Hx Family Neurologic Disorders: No Hx Family HEENT Disorders: No Hx Family Autoimmune Disorders: No - Gastrointestinal NSAID use: None Anticoagulation Use: None Number of BM Per Day: daily Gastrointestinal: Present: abdominal pain, nausea - Constitutional Constitutional: anorexia - EENT Eyes: as per HPI Ears: Present: as per HPI Nose, mouth and throat: Present: as per HPI - Cardiovascular Cardiovascular ROS: Present: as per HPI - Respiratory Respiratory IM: Present: as per HPI - Neurological ROS Neurological GI: Present: weakness - Hematologic/Lymphatic Hematologic/Lymphatic pediatric: Present: as per HPI - Musculoskeletal Musculoskeletal ROS GI: Present: as per HPI - Integumentary Integumentary GI: Present: jaundice, as per HPI - Psychiatric ROS Psychiatric GI: Present: as per HPI - Endocrine Endocrine IM: Present: as per HPI - Constitutional Vitals: Temp Pulse Resp BP Pulse Ox 98.2 F 82 14 110/72 95 01/02/17 07:01 01/02/17 07:01 01/02/17 07:01 01/02/17 07:01 01/02/17 07:01 General appearance: Present: cooperative, A&O X 3, no acute distress, answers questions appropriately - Head Head exam: Present: atraumatic, normocephalic - Eye Eye exam: Present: scleral icterus - ENT ENT exam: Present: mucous membranes moist - Neck Neck exam general surgery: Present: normal inspection, trachea midline - Respiratory Respiratory exam: Present: CTAB - Cardiovascular Cardiovascular exam: Present: RRR, +S1, +S2 - GI/Abdominal GI/Abdominal exam: Present: soft, tenderness, no peritoneal signs Additional comments: well approximated surgical scars noted. - Rectal Rectal exam: Present: deferred - Extremities Exam Extremities exam: Present: warm - Neurological Exam Neurological exam: Present: no focal deficits - Psychiatric Psychiatric exam: Present: normal affect, normal mood - Skin Additional comments: mild yellowing Results - Labs CBC & Chem 7: 01/01/17 05:34 12/31/16 11:47 Labs: Last Result Calcium 8.4 mg/dL (8.6-10.8) L 12/31/16 11:47 C-Reactive Protein 1 mg/L (Less than 5) 12/29/16 14:39 Entire Visit Hgb 11.1 g/dL (11.5-15.4) L 01/01/17 05:34 Hct 33.3 % (35.3-44.9) L 01/01/17 05:34 PT 14.6 Seconds (9.4-12.1) H 01/01/17 13:56 Total Bilirubin 2.6 mg/dL (0.2-1.2) H 01/02/17 05:21 AST 21 Units/L (5-34) 01/02/17 05:21 ALT 32 Units/L (0-55) 01/02/17 05:21 Amylase 60 Units/L (25-125) 12/29/16 14:39 Lipase 32 Units/L (8-78) 12/29/16 14:39 - ABG ABG results: PT/INR, D-dimer PT 14.6 Seconds (9.4-12.1) H 01/01/17 13:56 - Impressions Impressions Bile Acid Absorption NM 01/01/17 10:57 IMPRESSION: Findings consistent with bile leak along the gallbladder fossa. D/ / Ryan Moreno MD / Ryan Moreno MD Interpreting Provider: Ryan Moreno MD Abdomen CT 01/01/17 13:32 IMPRESSION: 1. A small amount of ascites is present. Focal fluid is present along the gallbladder fossa, measuring approximately 4.7 x 2.6 x 3.1 cm. This likely represents the area of activity seen on recent HIDA scan. The gallbladder fossa fluid is not loculated in appearance, and appears to communicate with the remainder of the ascites fluid in the peritoneal cavity. 2. Small bilateral pleural effusions with bibasilar opacities, most likely atelectasis. 3. Scattered free intraperitoneal air, consistent with recent intra-abdominal operation. D/ / 01/01/2017 15:17:47 Ryan Moreno MD / Monica Sanchez Interpreting Provider: Ryan Moreno MD Consult Discharge Plan - Plan Additional Instructions: #1 may shower, no tub bath for 2 weeks #2 wash incisions with soap and water and pat dry daily #3 no lifting, pushing, pulling more than 15 pounds for the next 2 weeks #4 no driving until off narcotics for 24 hours and able to safely react in the car #5 may climb stairs Follow up with outpatient surgery in 2 weeks. Referrals: Lyly Kearns, SPECIAL AGENT [Primary Care Provider] - <Francisca Benson - Last Filed: 01/02/17 21:19> - Time Spent With Patient Total time spent is greater than 50% in coordination of care (as documented) at patient's floor/unit and/or counseling patient: GI History of Present Illness - Data of Consult Requesting Physician: Shekhar Zhang DO - Consult Narrative History of present illness: Ms. Cintron is a 26 year old female - Constitutional Vitals: Temp Pulse Resp BP Pulse Ox 99.1 F 77 16 130/74 94 L 01/02/17 19:20 01/02/17 19:20 01/02/17 19:20 01/02/17 19:20 01/02/17 19:20 Results - Labs CBC & Chem 7: 01/01/17 05:34 12/31/16 11:47 Labs: Last Result Calcium 8.4 mg/dL (8.6-10.8) L 12/31/16 11:47 C-Reactive Protein 1 mg/L (Less than 5) 12/29/16 14:39 Entire Visit Hgb 11.1 g/dL (11.5-15.4) L 01/01/17 05:34 Hct 33.3 % (35.3-44.9) L 01/01/17 05:34 PT 14.6 Seconds (9.4-12.1) H 01/01/17 13:56 Total Bilirubin 2.6 mg/dL (0.2-1.2) H 01/02/17 05:21 AST 21 Units/L (5-34) 01/02/17 05:21 ALT 32 Units/L (0-55) 01/02/17 05:21 Amylase 60 Units/L (25-125) 12/29/16 14:39 Lipase 32 Units/L (8-78) 12/29/16 14:39 - ABG ABG results: PT/INR, D-dimer PT 14.6 Seconds (9.4-12.1) H 01/01/17 13:56 - Attending Attestation I examined this patient and my medical decision-making was reviewed with the DOCUMENTATION ENGINEER/PA/Advanced Practice Nurse/Resident Physician. I agree with the documented findings, disposition and treatment plan as described except to the extent set forth below.
--- NOTE | 2017-01-02 09:44 | General Surgery Progress Note ---
Date of Encounter: 01/02/17 Time of Encounter: 09:40 - Assessment and Plan (1) Acute cholecystitis Current Visit: Yes Status: Acute POD #3 laparoscopic cholecystectomy Supportive care/pain control NPO for ERCP IV fluids at 80ml/hour Ambulate in hallways Antiemetics as necessary Repeat am labs (2) Hyperbilirubinemia Current Visit: Yes Status: Acute TB- 2.6 (2.7) HIDA scan shows evidence of a bile leak Dr. Benson consulted for ERCP to be complete today CT scan shows no evidence of a focal fluid collection which is drainable ( discussed with Dr. Puckett) (3) Bile leak, postoperative Current Visit: Yes Status: Acute Plan for ERCP today with Dr. Benson (4) DVT prophylaxis Current Visit: Yes Status: Acute Heparin 5,000 units SQ twice daily for DVT prophylaxis Subjective Patient reports: feels better, still having pain, pain is less, voiding w/o difficulty, no flatus, no bowel movement, fever (Tmax 99.7; Tcurrent 98.2) Objective Vital Signs - Last 8 Hours Temp Pulse Resp BP Pulse Ox 01/02/17 07:01 98.2 F 82 14 110/72 95 01/02/17 07:00 95 01/02/17 03:13 98.3 F 81 16 114/67 95 Intake and Output 01/01/17 01/02/17 01/02/17 23:59 07:59 15:59 Intake Total 0 / 0 1000 / 1000 Output Total 400 / 400 400 / 400 Balance -400 / -400 600 / 600 Intake: IV Fluids 1000 / 1000 0.9 % Sodium Chloride 1, 1000 / 1000 000 ML @ 80 mls/hr IVC . [id number] [facility] Rx#: [id number] Oral 0 / 0 Output: Urine 400 / 400 400 / 400 Other: Meal Dinner Percent of Meal Consumed 45% Weight 89.386 kg Blood Glucose* 74 Patient Weight 01/02/17 23:59 Weight 89.386 kg - General physical appearance well developed, well nourished, moderate pain - Eyes normal ocular movement - ENT normal mucosa, atraumatic, normocephalic - Neck Neck exam: trachea midline - Respiratory normal respiratory effort, clear to auscultation - Cardiovascular Cardiovascular exam: Present: RRR - Abdomen Abdomen: Present: bowel sounds present (hypoactive), soft, tender (expected post -operative tenderness) - Incision Incision: Present: clean and dry, intact - Integumentary no rash, no growths - Neurologic CN 2-12 grossly intact - Psychiatric oriented to time, oriented to person, oriented to place, speech is normal, memory intact - Labs 01/01/17 05:34 12/31/16 11:47 Diabetes panel 01/02/17 Range/Units 05:21 AST 21 (5-34) Units/L ALT 32 (0-55) Units/L Alkaline Phosphatase 96 (38-126) Units/L Albumin 2.5 L D (3.5-5.0) g/dL Calcium panel 01/02/17 Range/Units 05:21 Albumin 2.5 L D (3.5-5.0) g/dL Adrenal panel 01/02/17 Range/Units 05:21 Total Bilirubin 2.6 H (0.2-1.2) mg/dL AST 21 (5-34) Units/L ALT 32 (0-55) Units/L Alkaline Phosphatase 96 (38-126) Units/L Albumin 2.5 L D (3.5-5.0) g/dL - VTE Documentation of Mechanical Device: Intermittent pneumatic compression device Consult Discharge Plan - Plan Additional Instructions: #1 may shower, no tub bath for 2 weeks #2 wash incisions with soap and water and pat dry daily #3 no lifting, pushing, pulling more than 15 pounds for the next 2 weeks #4 no driving until off narcotics for 24 hours and able to safely react in the car #5 may climb stairs Follow up with outpatient surgery in 2 weeks. Referrals: Lyly Kearns CNP [Primary Care Provider] - Prescriptions: OxyCODONE/APAP 5/325 [Percocet 5/325 MG] 1 each PO Q6HR PRN #24 tablet PRN Reason: Pain - Attending Attestation I examined this patient and my medical decision-making was reviewed with the FLOOR POLISHER/PA/Advanced Practice Nurse/Resident Physician. I agree with the documented findings, disposition and treatment plan as described except to the extent set forth below.
[2017-01-02] MEDS ORDERED: *HR* Succinylcholine 200 MG/10 ML VIAL IVP ONE (10:01)
[2017-01-02] MEDS ORDERED: *HR* Rocuronium Bromide 50 MG/5 ML VIAL IVC ONE (10:01)
[2017-01-02] MEDS ORDERED: Ondansetron 4 MG/2 ML VIAL IVP ONE (10:01)
[2017-01-02] MEDS ORDERED: Lidocaine -MPF 2% 5 ML VIAL INFILT ONE (10:01)
[2017-01-02] MEDS ORDERED: *HR* Propofol 200 MG/20 ML VIAL IVP ONE (10:01)
[2017-01-02] MEDS ORDERED: Lidocaine -MPF 4% 5 ML AMPUL TP ONE (10:01)
[2017-01-02] MEDS: Ibuprofen 800 MG TABLET PO SCH ×2 (10:31→17:26)
[2017-01-02] MEDS: Simethicone 80 MG TAB.CHEW PO SCH ×3 (10:35→21:20)
--- NOTE | 2017-01-02 14:00 | Anesthesia Evaluation PreOp ---
Date of Encounter: 01/02/17 Time of Encounter: 13:58 - Past History Planned Operation: ERCP s/p Lap Juanis 12/30/16 Cardiac History: Denies any Significant Hx Pulmonary History: Asthma (exercise induced), Other (Zyrtec for seasonal allergies) Other Medical History: Thyroid (maintained on Syntrhoid) Anesthesia History: No Prior Anesthetic Complications, Past Anesthesia (Lap Juanis 12/30/16) Alcohol Use: none Drug use: none Medications and Allergies Cetirizine HCl [Zyrtec] 5 mg PO DAILY 07/23/15 [History] Levothyroxine [Synthroid] 175 mcg PO DAILY 07/23/15 [History] OxyCODONE/APAP 5/325 [Percocet 5/325 MG] 1 each PO Q6HR PRN #24 tablet 12/30/16 [Rx] Sertraline [Zoloft] 25 mg PO BID 01/02/17 [History] Allergies cephalexin [From Keflex] Allergy (Verified 07/23/15 17:50) Hives loratadine [From Claritin] Allergy (Verified 08/31/15 21:52) Hives - Meds/Allergy Pre-op Review Medications Reviewed: Yes Allergies Reviewed: Yes Beta Blockers on Current Med List: No Anesthesia Results - Labs 01/01/17 05:34 12/31/16 11:47 Laboratory Tests 12/29/16 12/31/16 01/01/17 15:16 11:47 13:56 PT 14.6 H INR 1.3 Est GFR (Non-Af Amer) > 60 POC Glucose Urine Test Negative 01/02/17 11:37 PT INR Est GFR (Non-Af Amer) POC Glucose 75 Urine Test Laboratory Results Impressions Abdomen/Pelvis CT 12/29/16 16:38 IMPRESSION: Moderate amount of free fluid in the pelvis. Differential as described above Cholelithiasis with pericholecystic fluid worrisome for acute cholecystitis. Further investigation with ultrasound would be of value. Normal appendix D/ / Kody Reis MD / Kody Reis MD Interpreting Provider: Kody Reis MD Chest X-Ray 12/29/16 16:39 IMPRESSION: No acute cardiopulmonary disease. D/ / Gustavo Ellington MD / Gustavo Ellington MD Interpreting Provider: Gustavo Ellington MD Abdomen Ultrasound 12/29/16 18:08 IMPRESSION: A large mobile gallstone is present. Gallbladder wall thickening and pericholecystic fluid are seen, similar to CT exam. Although the sonographic Gautam's sign is negative, findings remain suspicious for acute cholecystitis. D/ / 12/29/2016 19:54:07 Ryan Moreno MD / kady Interpreting Provider: Ryan Moreno MD Cholangiogram,Operative 12/30/16 00:00 IMPRESSION: No evidence for biliary ductal obstruction Questionable extraluminal contrast. D/ / Almas Nunez MD / Almas Nunez MD Interpreting Provider: Almas Nunez MD Bile Acid Absorption NM 01/01/17 10:57 IMPRESSION: Findings consistent with bile leak along the gallbladder fossa. D/ / Ryan Moreno MD / Ryan Moreno MD Interpreting Provider: Ryan Moreno MD Abdomen CT 01/01/17 13:32 IMPRESSION: 1. A small amount of ascites is present. Focal fluid is present along the gallbladder fossa, measuring approximately 4.7 x 2.6 x 3.1 cm. This likely represents the area of activity seen on recent HIDA scan. The gallbladder fossa fluid is not loculated in appearance, and appears to communicate with the remainder of the ascites fluid in the peritoneal cavity. 2. Small bilateral pleural effusions with bibasilar opacities, most likely atelectasis. 3. Scattered free intraperitoneal air, consistent with recent intra-abdominal operation. D/ / 01/01/2017 15:17:47 Ryan Moreno MD / Monica Sanchez Interpreting Provider: Ryan Moreno MD Anesthesia Exam Vital Signs Temp Pulse Resp BP Pulse Ox 01/02/17 11:38 98.4 F 81 16 116/73 97 01/02/17 07:01 98.2 F 82 14 110/72 95 01/02/17 07:00 95 01/02/17 03:13 98.3 F 81 16 114/67 95 01/02/17 00:19 99.2 F 82 16 113/73 96 01/01/17 19:45 99.7 F H 85 14 112/77 99 01/01/17 19:29 97 01/01/17 16:33 98.2 F 77 16 104/67 97 Intake and Output 01/01/17 01/02/17 01/02/17 23:59 07:59 15:59 Intake Total 0 / 0 1000 / 1000 Output Total 400 / 400 400 / 400 Balance -400 / -400 600 / 600 Intake: IV Fluids 1000 / 1000 0.9 % Sodium Chloride 1, 1000 / 1000 000 ML @ 80 mls/hr IVC . [id number] Rx#: [id number] Oral 0 / 0 Output: Urine 400 / 400 400 / 400 Other: Meal Dinner Percent of Meal Consumed 45% # Voids 1 Weight 89.386 kg Blood Glucose* 74 75 Patient Weight 01/02/17 23:59 Weight 89.386 kg - HEENT Pupil (Motor): Pupils equal, EOMI Mallampati: II Teeth: Normal (chipped upper left molar) Oral Opening: Greater than 3 - ASSISTED LIVING CARE MANAGER LOC: Oriented ASSISTED LIVING CARE MANAGER Motor: Normal RUE, Normal LUE, Normal RLE, Normal LLE, Normal Face ASSISTED LIVING CARE MANAGER Sensory: Normal: RUE, LUE, RLE, LLE, Face - Cardiac Rhythm: Regular Murmur: None - Pulmonary Breath Sounds: bilateral Clear Respiratory Effort: Symmetrical Anesthesia Assess/Plan ASA Score: 2 (Obesity, Hypothyroidism, Anxiety) Modified Stefani Scale for Level of Consciousness: Cooperative, oriented, and tranquil Anesthetic Plan: General Monitoring Plan: Standard Monitors Recovery Plan: PACU Anes Supervising Prov Stmt: Pt seen/evaluated, R&B Discussed, questions answered and consent obtained. - MD Parish
[2017-01-02] MEDS ORDERED: *HR* Labetalol 100 MG/20 ML MDV IVP PRN (14:24)
[2017-01-02] MEDS ORDERED: *HR* Promethazine 25 MG/ML VIAL IVP PRN (14:24)
[2017-01-02] MEDS ORDERED: *HR* HYDROmorphone (PF) 1 MG/ML SYRINGE IVP PRN (14:24)
[2017-01-02] MEDS ORDERED: Acetaminophen IV 1,000 MG/100 ML INFUS..BTL ONE (14:26)
[2017-01-02] MEDS ORDERED: *HR* FentaNYL (PF) 100 MCG/2 ML VIAL ONE ×2 (14:54→15:23)
[2017-01-02] MEDS ORDERED: *HR* Midazolam HCl 2 MG/2 ML VIAL ONE (14:54)
[2017-01-02] MEDS ORDERED: Indomethacin 50 MG SUPP.RECT RC ONE ×2 (15:43→16:00)
[2017-01-02] MEDS ORDERED: *HR* FentaNYL (PF) 100 MCG/2 ML VIAL IVP PRN (16:09)
[2017-01-02] MEDS ORDERED: Ringers Solution, Lactated 1,000 ML IVC SCH (16:30)
--- NOTE | 2017-01-02 16:59 | Anesthesia Evaluation Post Op ---
Date of Encounter: 01/02/17 Time of Encounter: 16:50 - Vital Signs Vital Signs: Vital Signs Temperature 97.7 F 12/29/16 13:32 Pulse Rate 68 12/29/16 13:32 Respiratory Rate 16 12/29/16 13:32 Blood Pressure 120/73 12/29/16 13:32 O2 Sat by Pulse Oximetry 100 12/29/16 13:32 Temperature 98.8 F 01/02/17 16:15 Pulse Rate 98 01/02/17 16:35 Respiratory Rate 16 01/02/17 16:35 Blood Pressure 122/61 01/02/17 16:35 O2 Sat by Pulse Oximetry 95 01/02/17 16:35 Oxygen Delivery Oxygen Delivery Room Air - Lungs Lungs: Clear Ascult./Percussion - Airway Airway: Non-obstructed - Cardiovascular Regular Rate - Mental Status Mental Status: Alert & Oriented, Answers Appropriately - Pain Pain Scale: 0 Pain Scale used: Numeric (1 - 10) - Nausea Vomiting Nausea Vomiting: Not Present - Hydration Hydration: Tolerates oral liquids, Has not voided - Discharge PostOp Status: Transfer Patient to floor
[2017-01-02] MEDS: *HR* Promethazine 25 MG/ML VIAL IVP PRN ×2 (17:43→23:23)
[2017-01-03] MEDS: Ibuprofen 800 MG TABLET PO SCH ×4 (03:43→14:07)
[2017-01-03] MEDS: 0.9 % Sodium Chloride 1,000 ML IVC SCH (07:39)
[2017-01-03] MEDS: Simethicone 80 MG TAB.CHEW PO SCH ×4 (07:41→14:07)
--- NOTE | 2017-01-03 09:23 | Gastroenterology Progress Note ---
Date of Encounter: 01/03/17 Time of Encounter: 11:20 - Assessment and plan (1) Abdominal pain Current Visit: Yes Status: Acute Assessment and plan: s/p cholecystectomy 12/30/16. Imaging reveals possible bile leak. ERCP completed 01/02 with stent placement. ERCP with stent removal in 6-8 weeks. Qualifiers: Abdominal location: right upper quadrant Qualified Code(s): R10.11 - Right upper quadrant pain (2) Hyperbilirubinemia Current Visit: Yes Status: Acute Assessment and plan: 2ndary to post-danielle bile leak. ERCP w/stent, hepatic panel ordered. Bili improving, AST/ALT wnl. - Time Spent With Patient Total time spent is greater than 50% in coordination of care (as documented) at patient's floor/unit and/or counseling patient: - Subjective Interval history: Patient resting comfortably in bed. States some tenderness and bloating in upper abdomen. She admits some dizziness, but she has not eaten anything in a couple of days or so. She cannot tolerate the clear liquids, she requests an advancement in her diet. She is passing gas. - Constitutional Vitals: Temp Pulse Resp BP Pulse Ox 98.4 F 72 16 112/65 96 01/03/17 06:54 01/03/17 06:54 01/03/17 06:54 01/03/17 06:54 01/03/17 06:54 General appearance: Present: cooperative, A&O X 3, no acute distress, answers questions appropriately - Head Head exam: Present: atraumatic, normocephalic - Eye Eye exam: Present: normal appearance, sclera anicteric - ENT ENT exam: Present: mucous membranes moist - Neck Neck exam general surgery: Present: normal inspection, trachea midline - Respiratory Respiratory exam: Present: CTAB - Cardiovascular Cardiovascular exam: Present: RRR, +S1, +S2 - GI/Abdominal GI/Abdominal exam: Present: soft, tenderness, no peritoneal signs - Rectal Rectal exam: Present: deferred - Extremities Exam Extremities exam: Present: warm - Neurological Exam Neurological exam: Present: no focal deficits - Psychiatric Psychiatric exam: Present: normal affect, normal mood - Skin Skin exam: Present: dry, intact, normal color, warm Results - Labs CBC & Chem 7: 01/01/17 05:34 12/31/16 11:47 Labs: Last Result Calcium 8.4 mg/dL (8.6-10.8) L 12/31/16 11:47 C-Reactive Protein 1 mg/L (Less than 5) 12/29/16 14:39 Entire Visit Hgb 11.1 g/dL (11.5-15.4) L 01/01/17 05:34 Hct 33.3 % (35.3-44.9) L 01/01/17 05:34 PT 14.6 Seconds (9.4-12.1) H 01/01/17 13:56 Total Bilirubin 2.6 mg/dL (0.2-1.2) H 01/02/17 05:21 AST 21 Units/L (5-34) 01/02/17 05:21 ALT 32 Units/L (0-55) 01/02/17 05:21 Amylase 60 Units/L (25-125) 12/29/16 14:39 Lipase 32 Units/L (8-78) 12/29/16 14:39 - ABG ABG results: PT/INR, D-dimer PT 14.6 Seconds (9.4-12.1) H 01/01/17 13:56 - Impressions Impressions Cath/Invasive Procedure 01/02/17 14:55 IMPRESSION: Fluoroscopy provided for ERCP procedure. D/ / 01/03/2017 08:34:44 Gustavo Ellington MD / primo Interpreting Provider: Gustavo Ellington MD - VTE Documentation of Mechanical Device: Intermittent pneumatic compression device Consult Discharge Plan - Plan Additional Instructions: #1 may shower, no tub bath for 2 weeks #2 wash incisions with soap and water and pat dry daily #3 no lifting, pushing, pulling more than 15 pounds for the next 2 weeks #4 no driving until off narcotics for 24 hours and able to safely react in the car #5 may climb stairs Follow up with outpatient surgery in 2 weeks. Referrals: Lyly Kearns CNP [Primary Care Provider] -
[2017-01-03 10:27] LABS: Albumin 2.4 g/dL (3.5-5.0); Albumin/Globulin Ratio 0.8 (1.1-2.2); Bilirubin,Direct 1.2 mg/dL (0.0-0.5); Bilirubin,Indirect 0.7 mg/dL (0.0-1.2); Bilirubin,Total 1.9 mg/dL (0.2-1.2); Globulin 3.2 g/dL (2.4-3.5); Total Protein 5.6 g/dL (6.0-8.3)
--- NOTE | 2017-01-03 14:34 | Discharge Summary ---
Date of Encounter: 01/03/17 Time of Encounter: 14:30 - Discharge Diagnosis (1) Acute cholecystitis Priority: Primary Status: Resolved (2) Hyperbilirubinemia Priority: Secondary Status: Acute (3) Bile leak, postoperative Priority: Secondary Status: Resolved (4) DVT prophylaxis Priority: Secondary Status: Acute - Discharge Medications Prescriptions: OxyCODONE/APAP 5/325 [Percocet 5/325 MG] 1 each PO Q6HR PRN #30 tablet PRN Reason: Pain Ibuprofen [Motrin] 800 mg PO Q8HR #50 tablet Docusate [Colace] 100 mg PO BID #30 capsule Home Medications: Cetirizine HCl [Zyrtec] 5 mg PO DAILY 07/23/15 [History] Levothyroxine [Synthroid] 175 mcg PO DAILY 07/23/15 [History] Sertraline [Zoloft] 25 mg PO BID 01/02/17 [History] Docusate [Colace] 100 mg PO BID #30 capsule 01/03/17 [Rx] Ibuprofen [Motrin] 800 mg PO Q8HR #50 tablet 01/03/17 [Rx] OxyCODONE/APAP 5/325 [Percocet 5/325 MG] 1 each PO Q6HR PRN #30 tablet 01/03/17 [Rx] Allergies/Adverse Reactions: Allergies cephalexin [From Keflex] Allergy (Verified 07/23/15 17:50) Hives loratadine [From Claritin] Allergy (Verified 08/31/15 21:52) Hives General Surgery Exam Initial Vital Signs Temp Pulse Resp BP Pulse Ox 97.7 F 68 16 120/73 100 12/29/16 13:32 12/29/16 13:32 12/29/16 13:32 12/29/16 13:32 12/29/16 13:32 - General physical appearance well developed, well nourished, no distress - Eyes normal ocular movement - ENT normal mucosa, atraumatic, normocephalic - Neck trachea midline - Respiratory normal respiratory effort, clear to auscultation - Cardiovascular Cardiovascular exam: Present: RRR - Abdomen Abdomen general surgery: Present: bowel sounds present, soft, tender (expected postoperative tenderness) - Incision Incision: Present: clean and dry, intact - Integumentary Integumentary general surgery: Present: warm and dry - Neurologic Present: CN 2-12 grossly intact - Musculoskeletal Present: normal gait, normal posture - Psychiatric Psychiatric general surgery: Present: appropriate, oriented to person, oriented to place, oriented to time, speech is normal, memory intact Date of admission: 17 14:45 Primary care physician: Lyly Kearns CNP Discharging clinician: Shekhar Zhang (Bette Petersen) Anticipated date of discharge: 01/03/17 - Patient Status Disposition: Home, Self-Care Condition: Good Functional capacity at discharge: independent ambulation Overall status at discharge: patient is progressing back to baseline - Discharge Instructions Follow Up With: Shekhar Zhang DO [Partnered Physician] - Lyly Kearns CNP [Primary Care Provider] - Annette Petersen CNP [Advanced Practice Nurse] - 01/14/17 10:45 am (surgery follow-up) Francisca Bneson MD [Partnered Physician] - (3-4 weeks hospital follow-up; schedule for stent removal in 6 weeks) Additional Instructions: #1 may shower, no tub bath for 2 weeks #2 wash incisions with soap and water and pat dry daily #3 no lifting, pushing, pulling more than 15 pounds for the next 2 weeks #4 no driving until off narcotics for 24 hours and able to safely react in the car #5 may climb stairs - Diet and Activity Activity: other (See additional instructions above) Diet: advance to your usual diet - Hospital Course Hospital course: Ms. Cintron is a 26 year old female presented to the hospital with complaints of RUQ abdominal pain and was found to have acute cholecystitis. She was admitted to the hospital and placed on IV antibiotics and supportive care. She was taken to the operating room for a laparoscopic cholecystectomy with IOC with Dr. Zhang on 217. On POD #1, she complained of persistent abdominal pain and her labs were checked. Hepatic panel shows mildly elevated bilirubin and LFTs. She stayed in the hospital for supportive care and repeat labs. Her total bilirubin on POD #2 increased to 2.7. She was sent for a HIDA scan which showed evidence of a bile leak. Dr Benson was consulted and ERCP was complete on 17. Sphincterotomy and 2 stents were placed. The patients feels better after ERCP and she is tolerating a diet without nausea/vomiting. Her vital signs are stable and she is afebrile. Her pain is well controlled with ibuprofen. She has been able to void and ambulate without difficulty. We will begin discharge planning and plan for outpatient follow-up in the next 10-14 days. - Time Spent with Patient Total time spent providing and/or coordinating discharge services: Less than 30 minutes Labs on day of discharge: Labs from last 24 hours 01/03/17 01/03/17 01/02/17 09:46 05:25 23:18 POC Glucose 86 106 H Total Bilirubin 1.9 H Direct Bilirubin 1.2 H Indirect Bilirubin 0.7 AST 20 ALT 30 Alkaline Phosphatase 153 H Serum Total Protein 5.6 L Albumin 2.4 L Globulin 3.2 Albumin/Globulin Ratio 0.8 L Lipase 87 H 01/02/17 17:10 POC Glucose 74 Total Bilirubin Direct Bilirubin Indirect Bilirubin AST ALT Alkaline Phosphatase Serum Total Protein Albumin Globulin Albumin/Globulin Ratio Lipase - Impressions ITS Impressions Cath/Invasive Procedure 01/02/17 14:55 IMPRESSION: Fluoroscopy provided for ERCP procedure. D/ / 01/03/2017 08:34:44 Gustavo Ellington MD / primo Interpreting Provider: Gustavo Ellington MD
[2017-01-03 15:00] VITALS: BP 109/74
== END 2017-01-03 16:45 | disposition home or self-care (01) | DRG 263 ==
LOC: 3ANU 13:26 → EMEROO 13:26 → 3ANU 20:18
PROVIDERS: ADMIT Surgery; ATTEND Surgery

== ENCOUNTER 2017-01-14 21:09 | Inpatient (IN) ==
[2017-01-14 22:02] LABS: Basophils % 0.4 %; Eosinophils # 0.1 K/mcL (0.0-0.6); Eosinophils % 1.1 %; Hematocrit 33.6 % (35.3-44.9); Hemoglobin 11.1 g/dL (11.5-15.4); Immature Granulocytes % 0.6 % (0-4); Lymphocytes # 1.6 K/mcL (0.6-4.6); Lymphocytes % 14.4 %; Mean Corpuscular Hemoglobin 28.3 pg (28.0-33.3); Mean Corpuscular Volume 85.7 fL (83.0-100.0); Mean Platelet Volume 8.6 fL (9.4-12.4); Monocytes # 0.7 K/mcL (0.0-1.3); Monocytes % 5.9 %; Neutrophils # 8.5 K/mcL (1.6-8.9); Platelet Count 465 K/mcL (140-400); Red Blood Count 3.92 M/mcL (3.82-4.97); Red Cell Distribution Width 13.3 % (11.5-14.5); Segmented Neutrophils % 77.6 %
[2017-01-14 22:07] LABS: INR 1.4; Prothrombin Time 14.7 Seconds (9.4-12.1)
[2017-01-14 22:09] LABS: Activated Partial Thrombo Time 31.1 Seconds (26.0-36.0)
[2017-01-14 22:13] LABS: BUN/Creatinine Ratio 13 (6-26); Blood Urea Nitrogen 9 mg/dL (7-20); Calcium 9.4 mg/dL (8.6-10.8); Carbon Dioxide 26 mEq/L (19-29); Chloride 103 mEq/L (98-109); Glucose 97 mg/dL (70-99); Osmolality,Calculated 287 (280-300); Potassium 3.8 mEq/L (3.5-4.5); Sodium 139 mEq/L (136-145); eGFR For African Americans > 60 (> 60); eGFR For Non-African Americans > 60 (> 60)
--- NOTE | 2017-01-14 22:40 | Emergency Department Note ---
START Narrative - START START: 26-year-old female presents with concerns of brown emesis prior to arrival. Patient states she had a cholecystectomy 3 weeks ago and subsequently had stents placed in her common bile duct and pancreatic duct due to obstruction. Patient has been able to drink clear fluids and eat broth diets since the surgery. She tried to eat a baked potato and a yogurt Parfait today which she then vomited. Patient had states she has significant pain in her epigastrium. She reports intermittent fevers over the past 4 days reaching 101.2 at home. Patient denies diarrhea, hematochezia, melena. Ordering a CT of the abdomen and pelvis with IV contrast to rule out abscess formation. This is pending at the end of my shift and care will be transferred to Dr. Paul pending laboratory and imaging results and disposition.
[2017-01-14] MEDS ORDERED: 0.9 % Sodium Chloride 1,000 ML IVC ONE (23:14)
[2017-01-14] MEDS ORDERED: Ondansetron 4 MG/2 ML VIAL IV ONE (23:14)
--- NOTE | 2017-01-14 23:17 | Emergency Department Note ---
Disposition Clinical Impression: Abdominal abscess Disposition: Admitted As Inpatient Time of Disposition: 03:14 GI Bleed HPI - General Chief complaint: ED GI Bleed Stated complaint: "im puking coffee grounds" Time Seen by Provider: 01/14/17 22:20 Source: patient Mode of arrival: ambulatory Limitations: no limitations Nursing Notes Reviewed: Yes Vital Signs Reviewed: Yes - History of Present Illness HPI Narrative: She presents to the emergency department with complaints of having vomited coffee ground emesis earlier today. Her history includes 2 weeks ago she had gallbladder surgery which in that time they "nicked her common bile duct and pancreatic duct" she states that she did have her back to surgery had 2 stents placed and has not been feeling well since that time. She states that she has not had any provement over the last week. She did see her surgeon today in the( and they ordered her to have a CTA of her abdomen done on an outpatient basis tomorrow. She states that when she did have the coffee-ground emesis however she felt that she needed to have further evaluation. She states that she has been having quite a bit of nausea with an able to eat or drink, and has urinates approximately once to twice a day. Reports no fever Pt Subjective Complaint: coffee ground emesis Onset (ago): hour(s) (6) Number of episodes: 1 Consistency: intermittent Severity: moderate Improves with: nothing Worsens with: eating Treatments Prior to Arrival: none - Related Data Home Medications Medication Instructions Recorded Confirmed Cetirizine HCl [Zyrtec] 5 mg PO DAILY 07/23/15 12/30/16 Levothyroxine [Synthroid] 175 mcg PO DAILY 07/23/15 12/30/16 Sertraline [Zoloft] 25 mg PO BID 01/02/17 01/02/17 Previous Rx's Medication Instructions Recorded Docusate [Colace] 100 mg PO BID #30 capsule 01/03/17 Ibuprofen [Motrin] 800 mg PO Q8HR #50 tablet 01/03/17 OxyCODONE/APAP 5/325 [Percocet 1 each PO Q6HR PRN #30 tablet 01/03/17 5/325 MG] Allergies Allergy/AdvReac Type Severity Reaction Status Date / Time cephalexin [From Keflex] Allergy Hives Verified 01/14/17 21:19 loratadine [From Claritin] Allergy Hives Verified 01/14/17 21:19 All systems ED: reviewed and negative except as stated. Cardiovascular: Denies: chest pain, palpitations, dyspnea on exertion, edema, syncope Gastrointestinal: Reports: abdominal pain, nausea, vomiting, hematemesis Genitourinary: Denies: dysuria, frequency, hematuria, discharge Integumentary: Denies: rash, abrasion, lesions Neurological: Denies: headache, weakness, numbness, paresthesias, confusion, abnormal gait, vertigo Past Medical History - Past Medical History Attestation: Yes The following information was validated with the patient. Source: patient, nursing notes reviewed Medical history: Reports: asthma, thyroid disease, other Surgical history: Reports: , other Psychiatric history: Reports: anxiety, depression [employer]ER STEAMER history: Reports: no [employer] STE[employer]ER history - Social History Smoking Status: Former smoker Smokeless Tobacco Status: No Alcohol use: Reports: none Drug use: Reports: none Physical Exam - General Limitations: no limitations General appearance: alert - Head Head exam: atraumatic, normocephalic, normal inspection - Eye Eye exam: Present: normal appearance, PERRL, EOMI - ENT ENT exam: normal exam, normal oropharynx, mucous membranes moist - Neck Neck exam: Present: normal inspection, full ROM, trachea midline - Chest Chest inspection: Present: normal inspection, symmetric chest wall rise - Respiratory Respiratory exam: Present: normal lung sounds bilaterally - Cardiovascular Cardiovascular exam: Present: regular rate, normal rhythm, normal heart sounds - Abdominal Exam Abdominal exam: Present: soft, tenderness, diminished bowel sounds, incision ( well healing laproscopic surgical incisions of the abdomen ). Absent: distention, guarding, rebound - Rectal Exam Rectal exam: Present: deferred - Extremities Exam Extremities exam: Present: normal inspection, full ROM. Absent: tenderness, pedal edema - Expanded Lower Extremity Exam Gait: observed and normal - Back Exam Back exam: Present: normal inspection, full ROM. Absent: tenderness - Neurological Exam Neurological exam: Present: alert, oriented X3 - Psychiatric Psychiatric exam: Present: normal affect, normal mood - Skin Skin exam: Present: warm, dry, intact, normal color Course - Consultations Consultation #1: spoke with Dr. Zhang and he will consult on patient, admit to hospital she may need additional ERCP per Dr. Zhang Spoke with hospitalist, Dr. Quick who accepted patient for admission. Time: 01:51 Vital Signs Temperature 98.3 F 01/14/17 21:19 Pulse Rate 86 01/14/17 21:19 Respiratory Rate 20 01/14/17 21:19 Blood Pressure 105/72 01/14/17 21:19 O2 Sat by Pulse Oximetry 100 01/14/17 21:19 Temperature 98.2 F 01/15/17 03:07 Pulse Rate 89 01/15/17 03:07 Respiratory Rate 16 01/15/17 03:07 Blood Pressure 109/74 01/15/17 03:07 O2 Sat by Pulse Oximetry 99 01/15/17 03:07 Oxygen Delivery Oxygen Delivery Room Air GI Bleed - MDM Narrative Medical decision making narrative: possible abscess formation at site of stent from liver to bile duct. Will admit to the hospital, surgery to consult - Lab Data Lab results reviewed: Yes I reviewed the patient's lab results. Result diagrams: 01/14/17 21:55 01/14/17 21:55 Lab Results 01/14/17 01/14/17 01/14/17 Range/Units 21:55 21:55 21:55 WBC 11.0 (4.3-11.1) K/mcL RBC 3.92 (3.82-4.97) M/mcL Hgb 11.1 L (11.5-15.4) g/dL Hct 33.6 L (35.3-44.9) % MCV 85.7 (83.0-100.0) fL MCH 28.3 (28.0-33.3) pg MCHC 33.0 (31.6-35.5) g/dL RDW 13.3 (11.5-14.5) % Plt Count 465 H (140-400) K/mcL MPV 8.6 L (9.4-12.4) fL Immature Gran % 0.6 (0-4) % Seg Neutrophils % 77.6 % Lymphocytes % 14.4 % Monocytes % 5.9 % Eosinophils % 1.1 % Basophils % 0.4 % Neutrophils # 8.5 (1.6-8.9) K/mcL Lymphocytes # 1.6 (0.6-4.6) K/mcL Monocytes # 0.7 (0.0-1.3) K/mcL Eosinophils # 0.1 (0.0-0.6) K/mcL Basophils # 0.0 (0.0-0.2) K/mcL PT 14.7 H (9.4-12.1) Seconds INR 1.4 APTT 31.1 (26.0-36.0) Seconds Sodium 139 (136-145) mEq/L Potassium 3.8 (3.5-4.5) mEq/L Chloride 103 (98-109) mEq/L Carbon Dioxide 26 (19-29) mEq/L BUN 9 (7-20) mg/dL Creatinine 0.71 (0.57-1.11) mg/dL Est GFR ( Amer) > 60 (> 60) Est GFR (Non-Af Amer) > 60 (> 60) BUN/Creatinine Ratio 13 (6-26) Glucose 97 (70-99) mg/dL Calculated Osmolality 287 (280-300) Calcium 9.4 (8.6-10.8) mg/dL Blood Type Antibody Screen Antibody Identification 01/14/17 Range/Units 21:55 WBC (4.3-11.1) K/mcL RBC (3.82-4.97) M/mcL Hgb (11.5-15.4) g/dL Hct (35.3-44.9) % MCV (83.0-100.0) fL MCH (28.0-33.3) pg MCHC (31.6-35.5) g/dL RDW (11.5-14.5) % Plt Count (140-400) K/mcL MPV (9.4-12.4) fL Immature Gran % (0-4) % Seg Neutrophils % % Lymphocytes % % Monocytes % % Eosinophils % % Basophils % % Neutrophils # (1.6-8.9) K/mcL Lymphocytes # (0.6-4.6) K/mcL Monocytes # (0.0-1.3) K/mcL Eosinophils # (0.0-0.6) K/mcL Basophils # (0.0-0.2) K/mcL PT (9.4-12.1) Seconds INR APTT (26.0-36.0) Seconds Sodium (136-145) mEq/L Potassium (3.5-4.5) mEq/L Chloride (98-109) mEq/L Carbon Dioxide (19-29) mEq/L BUN (7-20) mg/dL Creatinine (0.57-1.11) mg/dL Est GFR ( Amer) (> 60) Est GFR (Non-Af Amer) (> 60) BUN/Creatinine Ratio (6-26) Glucose (70-99) mg/dL Calculated Osmolality (280-300) Calcium (8.6-10.8) mg/dL Blood Type A POSITIVE Antibody Screen POSITIVE Antibody Identification Anti-c - Radiology Data Radiology results reviewed: Yes I reviewed the patient's radiology results.
--- NOTE | 2017-01-15 01:08 | Emergency Department Note ---
START Narrative - START START: I examined this patient and my medical decision-making was reviewed with the INTERVENTIONAL TECH/PA/Advanced Practice Nurse/Resident Physician. I agree with the documented findings, disposition and treatment plan as described except to the extent set forth below. ED attending note: Patient seen with this practitioner Kina Khan. Please see a copy of her note for details of the H&P, evaluation, management and disposition of this patient. We independently had [id number] contact with the patient Briefly: A 26-year-old female multiple episodes of nausea and vomiting with coffee grounds in her vomitus. Tender abdomen. Afebrile with stable vital signs labs and CT are pending. Patient stable. Disposition pending
[2017-01-15] MEDS ORDERED: Piperacillin/Tazobactam 3.375 GM in D5% in Water (Mini-Bag+) 100 ML IVPB ONE (02:15)
[2017-01-15 02:34] LABS: Albumin 2.8 g/dL (3.5-5.0); Albumin/Globulin Ratio 0.7 (1.1-2.2); Bilirubin,Direct 0.8 mg/dL (0.0-0.5); Bilirubin,Indirect 0.3 mg/dL (0.0-1.2); Bilirubin,Total 1.1 mg/dL (0.2-1.2); Globulin 4.3 g/dL (2.4-3.5); Total Protein 7.1 g/dL (6.0-8.3)
[2017-01-15] MEDS ORDERED: Naloxone 0.4 MG/ML INJ IVP PRN (05:21)
--- NOTE | 2017-01-15 05:48 | Internal Med History&Physical ---
Date of Encounter: 01/15/17 Time of Encounter: 05:33 Assessment and Plan (1) Intra-abdominal abscess Current visit: Yes Status: Acute 1. Will follow blood cultures. 2. Start IV antibiotics with Zosyn and Flagyl. 3. Consult Dr. Zhang. 4. Consult Dr. Atkins. 5. Patient may benefit from CT guided abscess drainage by IR. Will defer to Dr. Zhang and Dr. Atkins. 6. Pain control and nausea control. (2) Dehydration Current visit: Yes Status: Acute 1. IVF hydration. 2. npo for now until Dr. Zhang and Dr. Atkins see patient. (3) DVT prophylaxis Current visit: Yes Status: Acute 1. Heparin SQ. Internal Medicine - H&P: HPI Chief complaint: abdominal pain, N/V Admitted From: Emergency Dept Plans for Post Hospital Care: Home History of present illness: Ms. Cintron is a 26 year old female who presents to the ER tonight with complaints of abdominal pain, nausea, and vomiting. Patient is 16 days postop from cholecystectomy. Her cholecystectomy was complicated by a chika of the common bile duct leading to bile leak. She underwent stent placement by Dr. Atkins via ERCP. Patient was following up with Dr. Zhang yesterday, and he ordered an outpatient CT scan to be done in the next day or two. However, patient's symptoms worsened overnight and so she came to ER for evaluation. Workup in the ER revealed CT scan which showed probable gallbladder fossa abscess. ER staff called Dr. Zhang requesting admission. He requested patient be admitted by the hospitalist and to consult him. As such, patient was admitted to hospitalist service. Upon my assessment of the patient, patient is nauseated and complaining of epigastric and right upper quadrant pain. She states she has been having significant nausea and vomiting and decreased oral fluid and food intake. She has had subjective fevers. She has had abdominal pain, which has been worsening. She denies any diarrhea. She has had pain since her surgery, but the acuity of the above events started approximately 3 days ago. Past Med Surg Social Fam HX - Past Medical History Attestation: Yes The following information was validated with the patient. Source: patient, old records reviewed Medical history: asthma, thyroid disease Psychiatric history: anxiety, depression - Past Surgical History Surgical History: , cholecystectomy - Social History Smoking Status: Former smoker Smokeless Tobacco Status: No Alcohol use: none Drug use: none Current living situation: Home Activity Level: Independent ambulation Recent Out of Country Travel Within the Last 8 Weeks: No - Family History Grandmother Hx Family Cardiac Disorders: Yes Hx Family Cancer: Yes Hx Family Endocrine Disorder: Yes Maternal Hx Family Cancer: Yes (uterine) Mother Hx Family GI Disorders: Yes Hx Family Endocrine Disorder: Yes (danielle) Father Family Member Ethnicity: Non- Living Status: Still Living Hx Family Cardiac Disorders: Yes Hx Family Respiratory Disorders: No Hx Family Cancer: No Hx Family GI Disorders: No Hx Family Endocrine Disorder: No Hx Family Neuromuscular Disorders: No Hx Family Neurologic Disorders: No Hx Family HEENT Disorders: No Hx Family Autoimmune Disorders: No Internal Medicine - H&P: Meds Cetirizine HCl [Zyrtec] 5 mg PO DAILY 07/23/15 [History] Levothyroxine [Synthroid] 175 mcg PO DAILY 07/23/15 [History] Sertraline [Zoloft] 25 mg PO BID 01/02/17 [History] Docusate [Colace] 100 mg PO BID #30 capsule 01/03/17 [Rx] Ibuprofen [Motrin] 800 mg PO Q8HR #50 tablet 01/03/17 [Rx] OxyCODONE/APAP 5/325 [Percocet 5/325 MG] 1 each PO Q6HR PRN #30 tablet 01/03/17 [Rx] Allergies cephalexin [From Keflex] Allergy (Verified 01/14/17 21:19) Hives loratadine [From Claritin] Allergy (Verified 01/14/17 21:19) Hives - Constitutional Constitutional: chills, fever(s), no night sweats - EENT Eyes: no blurry vision, no change in vision Ears: no tinnitus Nose, mouth and throat: no nasal congestion, no sinus pressure, no sore throat - Cardiovascular Cardiovascular ROS IM: no chest pain, no dyspnea, no dyspnea on exertion - Respiratory Respiratory: no cough, no dyspnea, no hemoptysis - Gastrointestinal Gastrointestinal: abdominal pain, nausea, vomiting, no diarrhea - Genitourinary Genitourinary: no dysuria, no hematuria - Musculoskeletal Musculoskeletal ROS IM: no arthralgias, no back pain - Integumentary Integumentary IM: no rash, no jaundice - Neurological Neurological ROS: no dizziness, no focal weakness - Psychiatric Psychiatric: no anxiety, no depression - Endocrine Endocrine IM: no polydipsia, no polyuria - Allergic/Immunologic Allergic/Immunologic: GI upset with certain foods, no wheezing - Constitutional Vitals: Temp Pulse Resp BP Pulse Ox 98.2 F 89 16 109/74 99 01/15/17 03:07 01/15/17 03:07 01/15/17 03:07 01/15/17 03:07 01/15/17 03:07 General appearance: Present: cooperative, mild distress, A&O X 3, pleasant, answers questions appropriately - Head Head exam: Present: atraumatic, normal inspection - Eye Eye exam: Present: EOMI, PERRL. Absent: scleral icterus Pupils: Present: normal accommodation - ENT ENT exam: Present: mucous membranes dry, normal exam, normal oropharynx - Neck Neck exam general surgery: Present: full ROM, supple. Absent: lymphadenopathy - Respiratory Respiratory exam: Present: CTAB. Absent: rales, rhonchi, wheezes - Cardiovascular Cardiovascular exam: Present: RRR, +S1, +S2. Absent: diastolic murmur, systolic murmur - GI/Abdominal GI/Abdominal exam: Present: guarding, normal bowel sounds, tenderness ( epigastric --> RUQ). Absent: hepatomegaly, mass, rebound, splenomegaly - Extremities Exam Extremities exam: Present: warm, radial pulses palpable and symetrical. Absent : calf tenderness, joint swelling - Back Exam Back exam: Present: normal inspection. Absent: CVA tenderness (L), CVA tenderness (R) - Neurological Exam Neurological exam: Present: alert, CN II-XII intact, oriented X3, no focal deficits - Psychiatric Psychiatric exam: Present: normal affect, normal mood - Skin Skin exam: Present: dry, warm. Absent: rash Internal Med - H&P Results - Labs CBC & Chem 7: 01/14/17 21:55 01/14/17 21:55 Labs: Liver Function 01/15/17 Range/Units 02:03 Total Bilirubin 1.1 (0.2-1.2) mg/dL Direct Bilirubin 0.8 H (0.0-0.5) mg/dL AST 97 H (5-34) Units/L ALT 116 H (0-55) Units/L Alkaline Phosphatase 385 H (38-126) Units/L Albumin 2.8 L (3.5-5.0) g/dL
[2017-01-15] MEDS: *HR* Heparin 5,000 UNIT/ML VIAL SQ SCH ×2 (06:02→19:31)
[2017-01-15] MEDS: *HR* Promethazine 25 MG/ML VIAL IVP PRN (06:02)
[2017-01-15] MEDS: 0.9 % Sodium Chloride w KCl 20 MEQ/1,000 ML MLS IVC SCH ×2 (06:03→19:30)
[2017-01-15] MEDS: *HR* Morphine 2 MG/ML SYRINGE IVP PRN (06:21)
[2017-01-15] MEDS ORDERED: MetroNIDAZOLE 500 MG/100 ML 500 MG/100 ML BAG IVPB SCH (08:00)
[2017-01-15] MEDS: Piperacillin/Tazobactam 3.375 GM in D5% in Water (Mini-Bag+) 100 ML IVPB SCH ×2 (11:04→18:03)
--- NOTE | 2017-01-15 11:22 | Gastroenterology Consult Note ---
<KapadiaTate Martinez - Last Filed: 01/15/17 11:20> Date of Encounter: 01/15/17 Time of Encounter: 10:10 - Assessment and plan (1) Intra-abdominal abscess Current Visit: Yes Status: Acute Assessment and plan: CT A/P shows a well defined, non-loculated fluid collection with small amount of air in the gallbladder fossa that measures 5.3 x 3.9 cm. Recommend abscess drainage by IR or Surgery. - Time Spent With Patient Total time spent is greater than 50% in coordination of care (as documented) at patient's floor/unit and/or counseling patient: GI History of Present Illness - Data of Consult Patient: new to practice Consult date: 01/15/17 Requesting Physician: Josse Chavez - Consult Narrative Reason for consult: Gallbladder fossa abscess History of present illness: Ms. Cintron is a 26 year old female with PMHx of Csection x 3, asthma, and kidney stone. She presented with c/o nausea, vomiting, RUQ and midepigastric pain that has been worsening over the past 3 days. She reports subjective fevers. She denies diarrhea. Lap danielle was completed by Dr. Zhang on 12/30/16. Imaging after surgery revealed possible bile leak. ERCP completed 01/02/17 with stent placement , with repeat ERCP with stent removal recommended in [address] Zhang in follow up yesterday and CT was ordered to be completed as outpatient. Her symptoms worsened and she presented to the ED. CT A/P shows a well defined, non-loculated fluid collection with small amount of air in the gallbladder fossa that measures 5.3 x 3.9 cm. Procedures: ERCP 01/02/17 with bile leak, biliary sphincterotomy performed, temporary stent place into the CBD and PD. Repeat ERCP for stent removal in 6 weeks. NSAIDs: Ibuprofen Anticoagulation: None Past Med Surg Social Fam HX - Past Medical History Medical history: asthma, thyroid disease Psychiatric history: anxiety, depression - Past Surgical History Surgical History: , cholecystectomy - Social History Smoking Status: Former smoker Smokeless Tobacco Status: No Alcohol use: none Drug use: none - Family History Grandmother Hx Family Cardiac Disorders: Yes Hx Family Cancer: Yes Hx Family Endocrine Disorder: Yes Maternal Hx Family Cancer: Yes (uterine) Mother Hx Family GI Disorders: Yes Hx Family Endocrine Disorder: Yes (danielle) Father Family Member Ethnicity: Non- Living Status: Still Living Hx Family Cardiac Disorders: Yes Hx Family Respiratory Disorders: No Hx Family Cancer: No Hx Family GI Disorders: No Hx Family Endocrine Disorder: No Hx Family Neuromuscular Disorders: No Hx Family Neurologic Disorders: No Hx Family HEENT Disorders: No Hx Family Autoimmune Disorders: No - Gastrointestinal Gastrointestinal: Present: as per HPI - Constitutional Constitutional: as per HPI - EENT Eyes: as per HPI Ears: Present: as per HPI Nose, mouth and throat: Present: as per HPI - Cardiovascular Cardiovascular ROS: Present: as per HPI - Respiratory Respiratory IM: Present: as per HPI - Genitourinary Genitourinary: Absent: change in color, Urinary frequency - Neurological ROS Neurological GI: Present: as per HPI - Hematologic/Lymphatic Hematologic/Lymphatic pediatric: Present: as per HPI - Musculoskeletal Musculoskeletal ROS GI: Present: as per HPI - Integumentary Integumentary GI: Present: as per HPI - Psychiatric ROS Psychiatric GI: Present: as per HPI - Endocrine Endocrine IM: Present: as per HPI - Constitutional Vitals: Temp Pulse Resp BP Pulse Ox 98.3 F 72 15 96/63 96 01/15/17 06:47 01/15/17 06:47 01/15/17 06:47 01/15/17 06:47 01/15/17 06:47 General appearance: Present: cooperative, A&O X 3, no acute distress, answers questions appropriately - Head Head exam: Present: atraumatic, normocephalic - Eye Eye exam: Present: normal appearance, sclera anicteric - ENT ENT exam: Present: mucous membranes dry - Neck Neck exam general surgery: Present: normal inspection, trachea midline - Respiratory Respiratory exam: Present: CTAB. Absent: rales, rhonchi, wheezes - Cardiovascular Cardiovascular exam: Present: RRR, +S1, +S2 - GI/Abdominal GI/Abdominal exam: Present: guarding, soft, tenderness (RUQ and midepigastic), no peritoneal signs. Absent: distended, firm - Rectal Rectal exam: Present: deferred - Extremities Exam Extremities exam: Present: warm - Neurological Exam Neurological exam: Present: no focal deficits - Psychiatric Psychiatric exam: Present: normal affect, normal mood - Skin Skin exam: Present: dry, intact, normal color, warm Results - Labs CBC & Chem 7: 01/14/17 21:55 01/14/17 21:55 Labs: Last Result Calcium 9.4 mg/dL (8.6-10.8) 01/14/17 21:55 Entire Visit Hgb 11.1 g/dL (11.5-15.4) L 01/14/17 21:55 Hct 33.6 % (35.3-44.9) L 01/14/17 21:55 PT 14.7 Seconds (9.4-12.1) H 01/14/17 21:55 Total Bilirubin 1.1 mg/dL (0.2-1.2) 01/15/17 02:03 AST 97 Units/L (5-34) H 01/15/17 02:03 ALT 116 Units/L (0-55) H 01/15/17 02:03 - ABG ABG results: PT/INR, D-dimer PT 14.7 Seconds (9.4-12.1) H 01/14/17 21:55 Consult Discharge Plan - Plan Referrals: Lyly Kearns TECHNICAL REPORT WRITER [Primary Care Provider] - <Francisca Benson - Last Filed: 01/15/17 18:13> Date of Encounter: 01/15/17 Time of Encounter: 17:00 - Time Spent With Patient Total time spent is greater than 50% in coordination of care (as documented) at patient's floor/unit and/or counseling patient: GI History of Present Illness - Data of Consult Requesting Physician: Josse Chavez - Consult Narrative History of present illness: Ms. Cintron is a 26 year old female - Constitutional Vitals: Temp Pulse Resp BP Pulse Ox 99.5 F 82 18 100/66 100 01/15/17 15:58 01/15/17 15:58 01/15/17 15:58 01/15/17 15:58 01/15/17 15:58 Results - Labs CBC & Chem 7: 01/14/17 21:55 01/14/17 21:55 Labs: Last Result Calcium 9.4 mg/dL (8.6-10.8) 01/14/17 21:55 Entire Visit Hgb 11.1 g/dL (11.5-15.4) L 01/14/17 21:55 Hct 33.6 % (35.3-44.9) L 01/14/17 21:55 PT 14.7 Seconds (9.4-12.1) H 01/14/17 21:55 Total Bilirubin 1.1 mg/dL (0.2-1.2) 01/15/17 02:03 AST 97 Units/L (5-34) H 01/15/17 02:03 ALT 116 Units/L (0-55) H 01/15/17 02:03 - ABG ABG results: PT/INR, D-dimer PT 14.7 Seconds (9.4-12.1) H 01/14/17 21:55 - Attending Attestation I examined this patient and my medical decision-making was reviewed with the OIL RECOVERY UNIT OPERATOR/PA/Advanced Practice Nurse/Resident Physician. I agree with the documented findings, disposition and treatment plan as described except to the extent set forth below.
[2017-01-15] MEDS ORDERED: Vancomycin 1,250 MG in D5% in Water 250 ML IVPB SCH (12:00)
[2017-01-15] MEDS: Vancomycin 1,250 MG in D5% in Water 250 ML IVPB SCH (13:21)
--- NOTE | 2017-01-15 14:25 | Event Note ---
Date of Encounter: 01/15/17 Time of Encounter: 14:22 patinet admitted for abdominal pain, nausea and vomiting Patient is 16 days postop from cholecystectomy. Her cholecystectomy was complicated by a chika of the common bile duct leading to bile leak. She underwent stent placement by Dr. Benson via ERCP. followed up with Dr. Zhang as OP and had a CT abdomen that showed GB fossa abscess. she has been started on IV antibiotics, IVF, supportive tx with analgesics and anti emetics.awaiting surgical recommendation for the drainage of the abscess. will keep NPO with ice chips for now.
[2017-01-15] MEDS ORDERED: Acetaminophen/Aspirin/Caffeine TABLET PO PRN (15:08)
--- NOTE | 2017-01-15 16:37 | Electrocardiograph Report ---
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
[2017-01-16] MEDS: Vancomycin 1,250 MG in D5% in Water 250 ML IVPB SCH ×2 (00:44→14:15)
[2017-01-16] MEDS: *HR* Promethazine 25 MG/ML VIAL IVP PRN (03:18)
[2017-01-16] MEDS: Piperacillin/Tazobactam 3.375 GM in D5% in Water (Mini-Bag+) 100 ML IVPB SCH ×3 (04:00→18:54)
[2017-01-16] MEDS: 0.9 % Sodium Chloride w KCl 20 MEQ/1,000 ML MLS IVC SCH ×3 (04:04→23:00)
[2017-01-16] MEDS: *HR* Heparin 5,000 UNIT/ML VIAL SQ SCH ×3 (04:05→19:00)
[2017-01-16 05:00] LABS: Basophils % 0.4 %; Eosinophils # 0.2 K/mcL (0.0-0.6); Eosinophils % 2.1 %; Hematocrit 28.6 % (35.3-44.9); Immature Granulocytes % 1.3 % (0-4); Lymphocytes # 1.2 K/mcL (0.6-4.6); Lymphocytes % 15.6 %; Mean Corpuscular HGB Conc 32.9 g/dL (31.6-35.5); Mean Corpuscular Hemoglobin 28.4 pg (28.0-33.3); Mean Corpuscular Volume 86.4 fL (83.0-100.0); Mean Platelet Volume 8.9 fL (9.4-12.4); Monocytes # 0.6 K/mcL (0.0-1.3); Monocytes % 8.1 %; Neutrophils # 5.5 K/mcL (1.6-8.9); Platelet Count 374 K/mcL (140-400); Red Blood Count 3.31 M/mcL (3.82-4.97); Red Cell Distribution Width 13.3 % (11.5-14.5); Segmented Neutrophils % 72.5 %
[2017-01-16 05:11] LABS: Hemoglobin 9.4 g/dL (11.5-15.4)
[2017-01-16 05:40] LABS: Alanine Aminotransferase 95 Units/L (0-55); Albumin 2.3 g/dL (3.5-5.0); Albumin/Globulin Ratio 0.6 (1.1-2.2); Alkaline Phosphatase 364 Units/L (38-126); Aspartate Amino Transferase 85 Units/L (5-34); BUN/Creatinine Ratio 8 (6-26); Carbon Dioxide 23 mEq/L (19-29); Chloride 109 mEq/L (98-109); Globulin 3.8 g/dL (2.4-3.5); Glucose 97 mg/dL (70-99); Osmolality,Calculated 285 (280-300); Potassium 3.7 mEq/L (3.5-4.5); Sodium 139 mEq/L (136-145); Total Protein 6.1 g/dL (6.0-8.3); eGFR For African Americans > 60 (> 60); eGFR For Non-African Americans > 60 (> 60)
[2017-01-16 05:46] LABS: Blood Urea Nitrogen 5 mg/dL (7-20); Calcium 7.7 mg/dL (8.6-10.8)
[2017-01-16] MEDS: Ondansetron 4 MG/2 ML VIAL IVP PRN ×2 (10:23→20:14)
--- NOTE | 2017-01-16 11:33 | General Surgery Progress Note ---
Date of Encounter: 01/16/17 Time of Encounter: 11:30 - Assessment and Plan (1) Intra-abdominal fluid collection Current Visit: Yes Status: Acute to IR today for drainage of fluid collection IV fluids empiric antibiotic therapy per hospitalist Supportive care/pain control Increase activity as tolerated (2) S/P laparoscopic cholecystectomy Current Visit: Yes Status: Resolved s/p Laparoscopic cholecystectomy with post-operative bile leak s/p ERCP with Dr. Benson and placement of stent X [address] Benson consulted per hospitalist (3) Elevated liver function tests Current Visit: Yes Status: Acute Improving Repeat labs in the am (4) Constipation Current Visit: Yes Status: Acute Will order 1/2 bottle of Mg Citrate Colace BID Qualifiers: Constipation type: unspecified constipation type Qualified Code(s): K59.00 - Constipation, unspecified Subjective Patient reports: no new complaints, still having pain, pain is less, voiding w/ o difficulty, flatus, no bowel movement, nausea, afebrile Objective Vital Signs - Last 8 Hours Temp Pulse Resp BP Pulse Ox 01/16/17 10:32 98.3 F 66 16 103/97 97 01/16/17 06:52 98.7 F 73 17 103/69 96 Intake and Output 01/15/17 01/16/17 01/16/17 23:59 07:59 15:59 Intake Total 569 / 569 1250 / 1250 100 / 100 Output Total 200 / 200 400 / 400 Balance 369 / 369 850 / 850 100 / 100 Intake: IV Fluids 569 / 569 1250 / 1250 100 / 100 KCl 20 mEq in 0.9% Sodium 469 / 469 1000 / 1000 Chloride 20 meq In 1,000 ml @ 125 mls/hr IVC .Q8H [facility] Rx#:[id number] Zosyn 3.375 GM In 100 / 100 100 / 100 Dextrose 5% (Minibag+) 100 ML 100 ML @ 25 mls/hr IVPB Q8H [facility] Rx#: [id number] Vancocin 1,250 MG In 250 / 250 Dextrose 5% 250 ML @ 166. 67 mls/hr IVPB Q12H [facility] Rx#:[id number] Oral 0 / 0 0 / 0 Output: Urine 200 / 200 400 / 400 Other: Meal NPO for supper NPO Stool Size Small Stool Consistency formed Stool Color Brown # Voids 2 1 # Bowel Movements 1 Weight 86.6 kg Patient Weight 01/16/17 23:59 Weight 86.6 kg - General physical appearance well developed, well nourished, no distress, moderate pain - Eyes normal ocular movement - ENT normal mucosa, atraumatic, normocephalic - Neck Neck exam: trachea midline - Respiratory normal respiratory effort, clear to auscultation - Cardiovascular Cardiovascular exam: Present: RRR - Abdomen Abdomen: Present: bowel sounds present, soft, tender Abdominal Tenderness: RUQ - Incision Incision: Present: clean and dry, intact - Integumentary no rash - Neurologic CN 2-12 grossly intact - Psychiatric oriented to time, oriented to person, oriented to place, speech is normal, memory intact - Labs 01/16/17 04:39 01/16/17 04:39 Diabetes panel 01/16/17 Range/Units 04:39 Sodium 139 (136-145) mEq/L Potassium 3.7 (3.5-4.5) mEq/L Chloride 109 (98-109) mEq/L Carbon Dioxide 23 (19-29) mEq/L BUN 5 L (7-20) mg/dL Creatinine 0.66 (0.57-1.11) mg/dL Glucose 97 (70-99) mg/dL Calcium 7.7 L D (8.6-10.8) mg/dL AST 85 H (5-34) Units/L ALT 95 H (0-55) Units/L Alkaline Phosphatase 364 H (38-126) Units/L Albumin 2.3 L (3.5-5.0) g/dL Calcium panel 01/16/17 Range/Units 04:39 Calcium 7.7 L D (8.6-10.8) mg/dL Albumin 2.3 L (3.5-5.0) g/dL Pituitary panel 01/16/17 Range/Units 04:39 Sodium 139 (136-145) mEq/L Potassium 3.7 (3.5-4.5) mEq/L Chloride 109 (98-109) mEq/L Carbon Dioxide 23 (19-29) mEq/L BUN 5 L (7-20) mg/dL Creatinine 0.66 (0.57-1.11) mg/dL Glucose 97 (70-99) mg/dL Calcium 7.7 L D (8.6-10.8) mg/dL Adrenal panel 01/16/17 Range/Units 04:39 Sodium 139 (136-145) mEq/L Potassium 3.7 (3.5-4.5) mEq/L Chloride 109 (98-109) mEq/L Carbon Dioxide 23 (19-29) mEq/L BUN 5 L (7-20) mg/dL Creatinine 0.66 (0.57-1.11) mg/dL Glucose 97 (70-99) mg/dL Calcium 7.7 L D (8.6-10.8) mg/dL Total Bilirubin 1.0 (0.2-1.2) mg/dL AST 85 H (5-34) Units/L ALT 95 H (0-55) Units/L Alkaline Phosphatase 364 H (38-126) Units/L Albumin 2.3 L (3.5-5.0) g/dL Consult Discharge Plan - Plan Referrals: Lyly Kearns, ER RN [Primary Care Provider] - - Attending Attestation I examined this patient and my medical decision-making was reviewed with the CREW MANAGER/PA/Advanced Practice Nurse/Resident Physician. I agree with the documented findings, disposition and treatment plan as described except to the extent set forth below.
--- NOTE | 2017-01-16 13:08 | Pre-Sedation Evaluation ---
Pre-sedation evaluation - Pre-sedation checklist Date of procedure: 01/16/17 Procedure: drain Recent Vitals: Last Vital Signs Temp 98.3 F 01/16/17 10:32 Pulse 66 01/16/17 10:32 Resp 16 01/16/17 10:32 BP 103/97 01/16/17 10:32 Pulse Ox 97 01/16/17 10:32 H&P (including ROS) documented in medical record: Yes Previous reaction to sedatives/anesthetics: No Dietary Status: NPO after Midnight Airway Assessment: Patient can open mouth completely, TMJ function normal, Micrognathia (under-bite, receding chin) absent, Neck with adequate range of motion Dentition: No loose teeth or bridges Possible difficult airway: No ASA Classification *see protocol: CLASS II-Mild systemic disease Plan of Care: Pt appropriate candidate for procedure/moderate/conscious sedation , Risks/benefits of procedure/sedation discussed w/ patient/family
[2017-01-16] MEDS ORDERED: 0.9 % Sodium Chloride 500 ML ONE (13:19)
[2017-01-16] MEDS: *HR* FentaNYL (PF) 100 MCG/2 ML VIAL IV PRN ×2 (13:25→13:30)
[2017-01-16] MEDS: *HR* Midazolam HCl 2 MG/2 ML VIAL IV PRN ×2 (13:25→13:27)
--- NOTE | 2017-01-16 13:43 | IR Procedure Note ---
Date of procedure: 01/16/17 Consent Obtained: Written consent Timeout: Correct patient and procedure verified, Correct site verified, Time out performed, Skin prep completed Indications: GB fossa abscess Procedure Performed: abscess drainage Site/Technique: anterior approach. Placed 12F drain. Results/Findings: 25 cc pus out. Sent for cultures Estimated blood loss (cc): 0 Complications: None; Tolerated procedure well Post Procedure Treatment Plan: suction bulb
[2017-01-16] MEDS: *HR* Morphine 2 MG/ML SYRINGE IVP PRN ×3 (14:28→21:58)
--- NOTE | 2017-01-16 15:43 | Internal Med Progress Note ---
Date of Encounter: 01/16/17 Time of Encounter: 15:40 - Assessment and plan (1) Intra-abdominal abscess Current Visit: Yes Status: Acute Assessment and plan: s/p IR guided drainage of pus today. continue IV antibiotics afebrile, no leucocytosis. will follow surgical recommendtaions (2) DVT prophylaxis Current Visit: Yes Status: Acute (3) Elevated liver function tests Current Visit: Yes Status: Acute Assessment and plan: seems to be improving will continue to monitor. (4) S/P laparoscopic cholecystectomy Current Visit: Yes Status: Resolved Assessment and plan: s/p Laparoscopic cholecystectomy with post-operative bile leak s/p ERCP with Dr. Benson and placement of stent X 2 13 days ago - Time Spent With Patient 25 - 35 minutes - Subjective Interval history: seen at the bedside, reports nausea. erin says she had food last night which made the pain and the nausea worse s/p IR guided drainage of the GB fossa abscess today - Constitutional Vitals: Temp Pulse Resp BP Pulse Ox 98 F 69 16 106/72 99 01/16/17 14:40 01/16/17 14:40 01/16/17 14:40 01/16/17 14:40 01/16/17 14:40 General appearance: Present: cooperative, mild distress, A&O X 3, pleasant, answers questions appropriately Exam: neck- supple chest- b/l clear, no added sounds CVS- s1 and s2, no m/r/g abd-soft, tender rt. upper quad, bs are present ext- no edema Internal Medicine: Result - Labs CBC & Chem 7: 01/16/17 04:39 01/16/17 04:39 Labs: Short CBC 01/16/17 Range/Units 04:39 WBC 7.6 (4.3-11.1) K/mcL Hgb 9.4 L D (11.5-15.4) g/dL Hct 28.6 L (35.3-44.9) % Plt Count 374 (140-400) K/mcL Neutrophils # 5.5 (1.6-8.9) K/mcL BMP 01/16/17 04:39 Sodium 139 Potassium 3.7 Chloride 109 Carbon Dioxide 23 BUN 5 L Creatinine 0.66 Glucose 97 Calcium 7.7 L D Liver Function 01/16/17 Range/Units 04:39 Total Bilirubin 1.0 (0.2-1.2) mg/dL AST 85 H (5-34) Units/L ALT 95 H (0-55) Units/L Alkaline Phosphatase 364 H (38-126) Units/L Albumin 2.3 L (3.5-5.0) g/dL - ABG Interpretation ABG results: PT/INR, D-dimer PT 14.7 Seconds (9.4-12.1) H 01/14/17 21:55 - Impressions Impressions Retroperitoneal Abscess Drainage 01/16/17 00:00 IMPRESSION: Successful CT guided placement of gallbladder fossa/liver abscess drainage catheter. D/ / 01/16/2017 14:24:58 Alaina Carrion MD / [facility] Interpreting Provider: Alaina Carrion MD Consult Discharge Plan - Plan Referrals: Lyly Kearns, INSTRUCTOR OF SOCIOLOGY [Primary Care Provider] -
[2017-01-17] MEDS: *HR* Morphine 2 MG/ML SYRINGE IVP PRN (01:06)
[2017-01-17 01:50] LABS: Albumin 2.3 g/dL (3.5-5.0); Albumin/Globulin Ratio 0.6 (1.1-2.2); Bilirubin,Direct 0.7 mg/dL (0.0-0.5); Bilirubin,Indirect 0.3 mg/dL (0.0-1.2); Globulin 3.9 g/dL (2.4-3.5); Total Protein 6.2 g/dL (6.0-8.3)
[2017-01-17] MEDS: Vancomycin 1,250 MG in D5% in Water 250 ML IVPB SCH ×3 (02:44→23:57)
[2017-01-17] MEDS: Ondansetron 4 MG/2 ML VIAL IVP PRN ×4 (02:44→23:59)
[2017-01-17] MEDS: Ketorolac 15 MG/ML VIAL IVP PRN ×4 (04:52→23:58)
[2017-01-17] MEDS: Piperacillin/Tazobactam 3.375 GM in D5% in Water (Mini-Bag+) 100 ML IVPB SCH ×2 (04:52→12:48)
[2017-01-17] MEDS: *HR* Heparin 5,000 UNIT/ML VIAL SQ SCH ×5 (06:00→23:58)
[2017-01-17 08:19] LABS: Basophils % 0.5 %; Eosinophils # 0.1 K/mcL (0.0-0.6); Eosinophils % 1.4 %; Hemoglobin 9.1 g/dL (11.5-15.4); Immature Granulocytes % 0.8 % (0-4); Immature Platelets 2.1 % (1.1-6.1); Lymphocytes # 1.3 K/mcL (0.6-4.6); Lymphocytes % 17.5 %; Mean Corpuscular HGB Conc 31.4 g/dL (31.6-35.5); Mean Corpuscular Hemoglobin 28.3 pg (28.0-33.3); Mean Corpuscular Volume 90.3 fL (83.0-100.0); Mean Platelet Volume 9.3 fL (9.4-12.4); Monocytes # 0.4 K/mcL (0.0-1.3); Neutrophils # 5.5 K/mcL (1.6-8.9); Platelet Count 446 K/mcL (140-400); Red Blood Count 3.21 M/mcL (3.82-4.97); Red Cell Distribution Width 13.6 % (11.5-14.5); Segmented Neutrophils % 74.8 %
[2017-01-17] MEDS: 0.9 % Sodium Chloride w KCl 20 MEQ/1,000 ML MLS IVC SCH ×2 (09:48→23:57)
--- NOTE | 2017-01-17 10:15 | General Surgery Progress Note ---
Date of Encounter: 01/17/17 Time of Encounter: 09:40 - Assessment and Plan (1) Intra-abdominal fluid collection Current Visit: Yes Status: Acute Drain in place. Continue IV fluids. Advance to clear liquid diet. Continue empiric antibiotic therapy per hospitalist. Increase pain control. Increase activity as tolerated. (2) S/P laparoscopic cholecystectomy Current Visit: Yes Status: Resolved s/p Laparoscopic cholecystectomy with post-operative bile leak s/p ERCP with Dr. Benson and placement of stent X 2 14 days ago (3) Elevated liver function tests Current Visit: Yes Status: Acute Continues to improve. Continue to monitor. Repeat labs in the AM. (4) Constipation Current Visit: Yes Status: Acute Continue colace BID Qualifiers: Constipation type: unspecified constipation type Qualified Code(s): K59.00 - Constipation, unspecified Subjective Patient reports: no new complaints, feels better, still having pain, pain is less, voiding w/o difficulty, flatus, no bowel movement, afebrile Narrative: The patient states she feels much better than yesterday. She reports having an appetite and wanting to try to progress to a clear liquid diet. She states she was able to bring her legs up into bed on her own after using the bedside commode for the first time today. Previously she would have too much pain when trying to do this. Objective Vital Signs - Last 8 Hours Temp Pulse Resp BP Pulse Ox 01/17/17 05:06 97.7 F 78 16 98/70 94 L Intake and Output 01/16/17 01/17/17 01/17/17 23:59 07:59 15:59 Intake Total 1200 / 1200 1250 / 1250 0 / 0 Output Total 1610 / 1610 Balance 1200 / 1200 -360 / -360 0 / 0 Intake: IV Fluids 1200 / 1200 1250 / 1250 KCl 20 mEq in 0.9% Sodium 1000 / 1000 1000 / 1000 Chloride 20 meq In 1,000 ml @ 125 mls/hr IVC .Q8H [facility] Rx#:[id number] Zosyn 3.375 GM In 200 / 200 Dextrose 5% (Minibag+) 100 ML 100 ML @ 25 mls/hr IVPB Q8H [facility] Rx#: [id number] Vancocin 1,250 MG In 250 / 250 Dextrose 5% 250 ML @ 166. 67 mls/hr IVPB Q12H [facility] Rx#:[id number] Oral 0 / 0 0 / 0 Output: Urine 1600 / 1600 Wound Drainage 10 / 10 Upper Abdomen 10 Other: Meal NPO BREAKFAST NPO Percent of Meal Consumed 0% # Voids 1 Weight 88.3 kg Blood Glucose* 70 87 Patient Weight 01/17/17 23:59 Weight 88.3 kg - General physical appearance well developed, well nourished, no distress - Eyes normal ocular movement - ENT normal mucosa, atraumatic, normocephalic - Neck Neck exam: trachea midline - Respiratory normal respiratory effort, clear to auscultation - Cardiovascular Cardiovascular exam: Present: RRR - Abdomen Abdomen: Present: bowel sounds present, soft, tender (mild tenderness around drain site), wound (VÍCTOR drain in place 10ml drainage since midnight. Somewhat bloody with serosanguineous fluid) - Integumentary no rash - Neurologic CN 2-12 grossly intact - Musculoskeletal normal posture - Psychiatric oriented to time, oriented to person, oriented to place, speech is normal, memory intact - Labs 01/17/17 01:25 01/16/17 04:39 Diabetes panel 01/17/17 Range/Units 01:25 AST 62 H (5-34) Units/L ALT 81 H (0-55) Units/L Alkaline Phosphatase 354 H (38-126) Units/L Albumin 2.3 L (3.5-5.0) g/dL Calcium panel 01/17/17 Range/Units 01:25 Albumin 2.3 L (3.5-5.0) g/dL Adrenal panel 01/17/17 Range/Units 01:25 Total Bilirubin 1.0 (0.2-1.2) mg/dL AST 62 H (5-34) Units/L ALT 81 H (0-55) Units/L Alkaline Phosphatase 354 H (38-126) Units/L Albumin 2.3 L (3.5-5.0) g/dL Consult Discharge Plan - Plan Referrals: Lyly Kearns, ADVERTISING SALES CONSULTANT [Primary Care Provider] - - Attending Attestation I examined this patient and my medical decision-making was reviewed with the DIAMOND POLISHER/PA/Advanced Practice Nurse/Resident Physician. I agree with the documented findings, disposition and treatment plan as described except to the extent set forth below.
--- NOTE | 2017-01-17 16:41 | Internal Med Progress Note ---
Date of Encounter: 01/17/17 Time of Encounter: 16:37 - Assessment and plan (1) Intra-abdominal abscess Current Visit: Yes Status: Acute Assessment and plan: s/p IR guided drainage of pus, has a drain, being followed by surgery. continue IV antibiotics afebrile, no leucocytosis. will follow surgical recommendtaions (2) DVT prophylaxis Current Visit: Yes Status: Acute (3) Elevated liver function tests Current Visit: Yes Status: Acute Assessment and plan: seems to be improving will continue to monitor. (4) S/P laparoscopic cholecystectomy Current Visit: Yes Status: Resolved Assessment and plan: s/p Laparoscopic cholecystectomy with post-operative bile leak s/p ERCP with Dr. Benson and placement of stent X 2 13 days ago - Time Spent With Patient 25 - 35 minutes - Subjective Interval history: seen at the bedside, reports much improvement s/p IR guided drainage of the GB fossa abscess , has a drain placed. surgery folllowing. - Constitutional Vitals: Temp Pulse Resp BP Pulse Ox 97.4 F L 61 16 108/73 99 01/17/17 10:56 01/17/17 10:56 01/17/17 10:56 01/17/17 10:56 01/17/17 10:56 General appearance: Present: cooperative, A&O X 3, pleasant, no acute distress, answers questions appropriately Exam: Head Head exam: Present: atraumatic, normal inspection - Eye Eye exam: Present: EOMI, PERRL. Absent: scleral icterus Pupils: Present: normal accommodation - ENT ENT exam: Present: mucous membranes dry, normal exam, normal oropharynx - Neck Neck exam general surgery: Present: full ROM, supple. Absent: lymphadenopathy - Respiratory Respiratory exam: Present: CTAB. Absent: rales, rhonchi, wheezes - Cardiovascular Cardiovascular exam: Present: RRR, +S1, +S2. Absent: diastolic murmur, systolic murmur - GI/Abdominal GI/Abdominal exam: Present: soft, mild tenderness on the right upper quadrant Absent: hepatomegaly, mass, rebound, splenomegaly - Extremities Exam Extremities exam: Present: warm, radial pulses palpable and symetrical. Absent : calf tenderness, joint swelling - Back Exam Back exam: Present: normal inspection. Absent: CVA tenderness (L), CVA tenderness (R) - Neurological Exam Neurological exam: Present: alert, CN II-XII intact, oriented X3, no focal deficits - Psychiatric Psychiatric exam: Present: normal affect, normal mood - Skin Skin exam: Present: dry, warm. Absent: rash Internal Medicine: Result - Labs CBC & Chem 7: 01/17/17 01:25 01/16/17 04:39 Labs: Short CBC 01/17/17 Range/Units 01:25 WBC 7.4 (4.3-11.1) K/mcL Hgb 9.1 L (11.5-15.4) g/dL Hct 29.0 L (35.3-44.9) % Plt Count 446 H (140-400) K/mcL Neutrophils # 5.5 (1.6-8.9) K/mcL Liver Function 01/17/17 Range/Units 01:25 Total Bilirubin 1.0 (0.2-1.2) mg/dL Direct Bilirubin 0.7 H (0.0-0.5) mg/dL AST 62 H (5-34) Units/L ALT 81 H (0-55) Units/L Alkaline Phosphatase 354 H (38-126) Units/L Albumin 2.3 L (3.5-5.0) g/dL - ABG Interpretation ABG results: PT/INR, D-dimer PT 14.7 Seconds (9.4-12.1) H 01/14/17 21:55 Consult Discharge Plan - Plan Referrals: Lyly Kearns, DIET THERAPIST [Primary Care Provider] -
[2017-01-18] MEDS: Ondansetron 4 MG/2 ML VIAL IVP PRN ×3 (06:10→20:20)
[2017-01-18] MEDS: Ketorolac 15 MG/ML VIAL IVP PRN ×3 (06:11→20:30)
[2017-01-18] MEDS: *HR* Heparin 5,000 UNIT/ML VIAL SQ SCH ×3 (06:11→18:08)
[2017-01-18 07:08] LABS: Basophils % 0.8 %; Eosinophils # 0.2 K/mcL (0.0-0.6); Eosinophils % 4.1 %; Hematocrit 29.1 % (35.3-44.9); Hemoglobin 9.3 g/dL (11.5-15.4); Immature Granulocytes % 1.4 % (0-4); Lymphocytes # 1.4 K/mcL (0.6-4.6); Mean Corpuscular Volume 87.7 fL (83.0-100.0); Mean Platelet Volume 9.4 fL (9.4-12.4); Monocytes # 0.4 K/mcL (0.0-1.3); Monocytes % 8.2 %; Neutrophils # 2.8 K/mcL (1.6-8.9); Platelet Count 406 K/mcL (140-400); Red Blood Count 3.32 M/mcL (3.82-4.97); Red Cell Distribution Width 13.5 % (11.5-14.5); Segmented Neutrophils % 56.5 %
[2017-01-18 07:22] LABS: BUN/Creatinine Ratio 4 (6-26); Calcium 8.1 mg/dL (8.6-10.8); Carbon Dioxide 25 mEq/L (19-29); Chloride 107 mEq/L (98-109); Glucose 78 mg/dL (70-99); Osmolality,Calculated 286 (280-300); Potassium 4.5 mEq/L (3.5-4.5); Sodium 140 mEq/L (136-145); eGFR For African Americans > 60 (> 60); eGFR For Non-African Americans > 60 (> 60)
[2017-01-18 07:24] LABS: Blood Urea Nitrogen 4 mg/dL (7-20)
[2017-01-18] MEDS ORDERED: Aminoglycoside Consult 1 EACH MC ONE (09:52)
[2017-01-18] MEDS: Vancomycin 1,250 MG in D5% in Water 250 ML IVPB SCH (13:11)
[2017-01-18] MEDS: 0.9 % Sodium Chloride w KCl 20 MEQ/1,000 ML MLS IVC SCH (13:12)
--- NOTE | 2017-01-18 14:21 | General Surgery Progress Note ---
Date of Encounter: 01/18/17 Time of Encounter: 14:00 - Assessment and Plan (1) Intra-abdominal fluid collection Current Visit: Yes Status: Acute Transition to PO bactrim Advance to regular diet Supportive care/pain control Increase activity as tolerated Continue drain for the next 7-10 days (follow-up in the surgery office next 01/24/17) (2) S/P laparoscopic cholecystectomy Current Visit: Yes Status: Resolved s/p Laparoscopic cholecystectomy with post-operative bile leak s/p ERCP with Dr. Benson and placement of stent X 2 Dr. Benson consulted per hospitalist (3) Elevated liver function tests Current Visit: Yes Status: Acute Improving Repeat labs in the am (4) Constipation Current Visit: Yes Status: Acute Colace BID Qualifiers: Constipation type: unspecified constipation type Qualified Code(s): K59.00 - Constipation, unspecified Subjective Patient reports: no new complaints, feels better, still having pain, pain is less, tolerating liquids well, voiding w/o difficulty, flatus, nausea, afebrile Objective Vital Signs - Last 8 Hours Temp Pulse Resp BP Pulse Ox 01/18/17 10:41 98.2 F 68 16 113/75 96 01/18/17 08:05 98.0 F 62 14 102/66 95 Intake and Output 01/17/17 01/18/17 01/18/17 23:59 07:59 15:59 Intake Total 370 / 370 600 / 600 870 / 870 Output Total 1465 / 1465 400 / 400 0 / 0 Balance -1095 / -1095 200 / 200 870 / 870 Intake: IV Fluids 250 / 250 600 / 600 650 / 650 KCl 20 mEq in 0.9% Sodium 350 / 350 650 / 650 Chloride 20 meq In 1,000 ml @ 80 mls/hr IVC . [id number] [facility] Rx#: [id number] Vancocin 1,250 MG In 250 / 250 250 / 250 Dextrose 5% 250 ML @ 166. 67 mls/hr IVPB Q12H [facility] Rx#:[id number] Oral 120 / 120 220 / 220 Output: Urine 1450 / 1450 400 / 400 0 / 0 Wound Drainage 15 / 15 0 / 0 0 / 0 Upper Abdomen 15 / 15 0 / 0 0 / 0 Other: Meal water pitcher Weight 88.025 kg Blood Glucose* 119 Patient Weight 01/18/17 23:59 Weight 88.025 kg - General physical appearance well developed, well nourished, no distress - Eyes normal ocular movement - ENT normal mucosa, atraumatic, normocephalic - Neck Neck exam: trachea midline - Respiratory normal respiratory effort, clear to auscultation - Cardiovascular Cardiovascular exam: Present: RRR - Abdomen Abdomen: Present: bowel sounds present, soft, tender, wound (pigtail drain with small amount of purulent drainage noted (minimal drainage noted today)) Abdominal Tenderness: RUQ - Neurologic CN 2-12 grossly intact - Musculoskeletal normal gait, normal posture - Psychiatric oriented to time, oriented to person, oriented to place, speech is normal, memory intact - Labs 01/18/17 05:58 01/18/17 05:58 Diabetes panel 01/18/17 Range/Units 05:58 Sodium 140 (136-145) mEq/L Potassium 4.5 (3.5-4.5) mEq/L Chloride 107 (98-109) mEq/L Carbon Dioxide 25 (19-29) mEq/L BUN 4 L (7-20) mg/dL Creatinine 1.09 D (0.57-1.11) mg/dL Glucose 78 (70-99) mg/dL Calcium 8.1 L (8.6-10.8) mg/dL Calcium panel 01/18/17 Range/Units 05:58 Calcium 8.1 L (8.6-10.8) mg/dL Pituitary panel 01/18/17 Range/Units 05:58 Sodium 140 (136-145) mEq/L Potassium 4.5 (3.5-4.5) mEq/L Chloride 107 (98-109) mEq/L Carbon Dioxide 25 (19-29) mEq/L BUN 4 L (7-20) mg/dL Creatinine 1.09 D (0.57-1.11) mg/dL Glucose 78 (70-99) mg/dL Calcium 8.1 L (8.6-10.8) mg/dL Adrenal panel 01/18/17 Range/Units 05:58 Sodium 140 (136-145) mEq/L Potassium 4.5 (3.5-4.5) mEq/L Chloride 107 (98-109) mEq/L Carbon Dioxide 25 (19-29) mEq/L BUN 4 L (7-20) mg/dL Creatinine 1.09 D (0.57-1.11) mg/dL Glucose 78 (70-99) mg/dL Calcium 8.1 L (8.6-10.8) mg/dL Consult Discharge Plan - Plan Referrals: Lyly Kearns, PET NUTRITION SPECIALIST [Primary Care Provider] - - Attending Attestation I examined this patient and my medical decision-making was reviewed with the ON SITE WASTEWATER SYSTEMS TECHNICIAN/PA/Advanced Practice Nurse/Resident Physician. I agree with the documented findings, disposition and treatment plan as described except to the extent set forth below.
[2017-01-18] MEDS: Sulfamethoxazole/Trimeth DS 1 EACH TABLET PO SCH ×2 (15:58→20:20)
--- NOTE | 2017-01-18 16:18 | Internal Med Progress Note ---
Date of Encounter: 01/18/17 Time of Encounter: 16:16 - Assessment and plan (1) Intra-abdominal abscess Current Visit: Yes Status: Acute Assessment and plan: s/p IR guided drainage of pus, has a drain, being followed by surgery. antibiotics has been changed to oral bactrim. afebrile, no leucocytosis. plan to dc tomm with oral antibiotics. drain to be continued for 7 days and f/u in 1 week with surgery (2) DVT prophylaxis Current Visit: Yes Status: Acute (3) Elevated liver function tests Current Visit: Yes Status: Acute Assessment and plan: seems to be improving will continue to monitor. (4) S/P laparoscopic cholecystectomy Current Visit: Yes Status: Resolved Assessment and plan: s/p Laparoscopic cholecystectomy with post-operative bile leak s/p ERCP with Dr. Benson and placement of stent X 2 13 days ago - Time Spent With Patient 25 - 35 minutes - Subjective Interval history: seen at the bedside, reports much improvement s/p IR guided drainage of the GB fossa abscess , has a drain placed. surgery folllowing. - Constitutional Vitals: Temp Pulse Resp BP Pulse Ox 97.8 F 66 14 126/82 98 01/18/17 15:02 01/18/17 15:02 01/18/17 15:02 01/18/17 15:02 01/18/17 15:02 General appearance: Present: cooperative, A&O X 3, pleasant, no acute distress, answers questions appropriately Exam: Head Head exam: Present: atraumatic, normal inspection - Eye Eye exam: Present: EOMI, PERRL. Absent: scleral icterus Pupils: Present: normal accommodation - ENT ENT exam: Present: mucous membranes dry, normal exam, normal oropharynx - Neck Neck exam general surgery: Present: full ROM, supple. Absent: lymphadenopathy - Respiratory Respiratory exam: Present: CTAB. Absent: rales, rhonchi, wheezes - Cardiovascular Cardiovascular exam: Present: RRR, +S1, +S2. Absent: diastolic murmur, systolic murmur - GI/Abdominal GI/Abdominal exam: Present: soft, mild tenderness on the right upper quadrant , has a drain in situ at the RUQ. Absent: hepatomegaly, mass, rebound, splenomegaly - Extremities Exam Extremities exam: Present: warm, radial pulses palpable and symetrical. Absent : calf tenderness, joint swelling - Back Exam Back exam: Present: normal inspection. Absent: CVA tenderness (L), CVA tenderness (R) - Neurological Exam Neurological exam: Present: alert, CN II-XII intact, oriented X3, no focal deficits - Psychiatric Psychiatric exam: Present: normal affect, normal mood - Skin Skin exam: Present: dry, warm. Absent: rash Internal Medicine: Result - Labs CBC & Chem 7: 01/18/17 05:58 01/18/17 05:58 Labs: Short CBC 01/18/17 Range/Units 05:58 WBC 4.9 (4.3-11.1) K/mcL Hgb 9.3 L (11.5-15.4) g/dL Hct 29.1 L (35.3-44.9) % Plt Count 406 H (140-400) K/mcL Neutrophils # 2.8 (1.6-8.9) K/mcL BMP 01/18/17 05:58 Sodium 140 Potassium 4.5 Chloride 107 Carbon Dioxide 25 BUN 4 L Creatinine 1.09 D Glucose 78 Calcium 8.1 L - ABG Interpretation ABG results: PT/INR, D-dimer PT 14.7 Seconds (9.4-12.1) H 01/14/17 21:55 Consult Discharge Plan - Plan Referrals: Lyly Kearns CNP [Primary Care Provider] -
[2017-01-18] MEDS: *HR* Promethazine 25 MG/ML VIAL IVP PRN (23:17)
[2017-01-19] MEDS: 0.9 % Sodium Chloride w KCl 20 MEQ/1,000 ML MLS IVC SCH ×2 (03:56)
[2017-01-19] MEDS: Ondansetron 4 MG/2 ML VIAL IVP PRN ×3 (05:58→21:05)
[2017-01-19] MEDS: *HR* Heparin 5,000 UNIT/ML VIAL SQ SCH ×2 (05:59→18:38)
[2017-01-19] MEDS: Ketorolac 15 MG/ML VIAL IVP PRN ×2 (06:01→14:17)
[2017-01-19] MEDS: Sulfamethoxazole/Trimeth DS 1 EACH TABLET PO SCH ×2 (09:37→21:05)
--- NOTE | 2017-01-19 12:32 | General Surgery Progress Note ---
<Judson Tovar - Last Filed: 01/19/17 12:30> Date of Encounter: 01/19/17 Time of Encounter: 08:30 - Assessment and Plan (1) Intra-abdominal fluid collection Current Visit: Yes Status: Acute Drain in place. Continue IV fluids. Continue on regular diet. Continue antibiotic therapy per hospitalist. Continue pain control. Increase activity as tolerated. Add Reglan today to increase bowel motility. (2) S/P laparoscopic cholecystectomy Current Visit: Yes Status: Resolved s/p Laparoscopic cholecystectomy with post-operative bile leak s/p ERCP with Dr. Benson and placement of stent X 2 14 days ago (3) Elevated liver function tests Current Visit: Yes Status: Acute Total bilirubin was within normal limits yesterday. LFTs continued to trend downward yesterday. (4) Constipation Current Visit: Yes Status: Acute Continue colace BID Add Reglan. Qualifiers: Constipation type: unspecified constipation type Qualified Code(s): K59.00 - Constipation, unspecified Subjective Patient reports: still having pain, voiding w/o difficulty, flatus, no bowel movement, nausea, afebrile Narrative: The patient states she continues to have difficulty with eating and experiences continued nausea whenever she tries to eat. She is able to tolerate crackers well. She has some pain around the drain site, but it is manageable. She has not had a bowel movement since 01/15. She denies feelings of the urge to go and denies constipation. Objective Vital Signs - Last 8 Hours Temp Pulse Resp BP Pulse Ox 01/19/17 08:08 98.3 F 77 15 103/68 94 L Intake and Output 01/18/17 01/19/17 01/19/17 23:59 07:59 15:59 Intake Total 0 / 0 1000 / 1000 Output Total 910 / 910 600 / 600 0 / 0 Balance -910 / -910 400 / 400 0 / 0 Intake: IV Fluids 1000 / 1000 KCl 20 mEq in 0.9% Sodium 1000 / 1000 Chloride 20 meq In 1,000 ml @ 80 mls/hr IVC . [id number] [facility] Rx#: [id number] Oral 0 / 0 0 / 0 Output: Urine 900 / 900 600 / 600 Wound Drainage 0 / 0 Upper Abdomen 0 / 0 Other: Weight 88 kg Patient Weight 01/19/17 23:59 Weight 88 kg - General physical appearance well developed, well nourished, no distress - Eyes normal ocular movement - ENT normal mucosa - Neck Neck exam: trachea midline - Respiratory normal respiratory effort, clear to auscultation - Cardiovascular Cardiovascular exam: Present: RRR - Abdomen Abdomen: Present: bowel sounds present, soft, tender (around drain site), wound (10ml of fluid recorded from yesterday) - Integumentary no rash - Neurologic CN 2-12 grossly intact - Musculoskeletal normal posture - Psychiatric oriented to time, oriented to person, oriented to place, speech is normal, memory intact - Labs 01/18/17 05:58 01/18/17 05:58 Consult Discharge Plan - Plan Referrals: Lyly Kearns, SHAREPOINT ADMINISTRATOR [Primary Care Provider] - - Attending Attestation I examined this patient and my medical decision-making was reviewed with the REAL ESTATE PROFESSOR/PA/Advanced Practice Nurse/Resident Physician. I agree with the documented findings, disposition and treatment plan as described except to the extent set forth below. <Miguelito Sam - Last Filed: 01/20/17 07:53> Objective Vital Signs - Last 8 Hours Temp Pulse Resp BP Pulse Ox 01/20/17 06:30 98.3 F 74 18 104/68 96 01/20/17 00:00 98.2 F 72 15 101/65 94 L Intake and Output 01/19/17 01/19/17 01/20/17 15:59 23:59 07:59 Intake Total 1100 / 1100 1049 / 1049 Output Total 505 / 505 0 / 0 1000 / 1000 Balance -505 / -505 1100 / 1100 49 / 49 Intake: IV Fluids 1000 / 1000 849 / 849 0.9 % Sodium Chloride 1, 849 / 849 000 ML @ 60 mls/hr IVC . [id number] [facility] Rx#: [id number] KCl 20 mEq in 0.9% Sodium 1000 / 1000 Chloride 20 meq In 1,000 ml @ 80 mls/hr IVC . [id number] [facility] Rx#: [id number] Oral 100 / 100 200 / 200 Output: Urine 500 / 500 0 / 0 1000 / 1000 Wound Drainage 5 / 5 0 / 0 0 / 0 Upper Abdomen 5 / 5 0 / 0 0 / 0 Other: Meal Dinner Percent of Meal Consumed 0% Weight 88.082 kg Patient Weight 01/20/17 23:59 Weight 88.082 kg - Labs 01/20/17 05:14 01/20/17 05:14 Diabetes panel 01/20/17 Range/Units 05:14 Sodium 139 (136-145) mEq/L Potassium 4.3 (3.5-4.5) mEq/L Chloride 107 (98-109) mEq/L Carbon Dioxide 22 (19-29) mEq/L BUN 8 (7-20) mg/dL Creatinine 1.61 H (0.57-1.11) mg/dL Glucose 75 (70-99) mg/dL Calcium 8.5 L (8.6-10.8) mg/dL AST 35 H (5-34) Units/L ALT 59 H (0-55) Units/L Alkaline Phosphatase 282 H (38-126) Units/L Albumin 2.4 L (3.5-5.0) g/dL Calcium panel 01/20/17 Range/Units 05:14 Calcium 8.5 L (8.6-10.8) mg/dL Albumin 2.4 L (3.5-5.0) g/dL Pituitary panel 01/20/17 Range/Units 05:14 Sodium 139 (136-145) mEq/L Potassium 4.3 (3.5-4.5) mEq/L Chloride 107 (98-109) mEq/L Carbon Dioxide 22 (19-29) mEq/L BUN 8 (7-20) mg/dL Creatinine 1.61 H (0.57-1.11) mg/dL Glucose 75 (70-99) mg/dL Calcium 8.5 L (8.6-10.8) mg/dL Adrenal panel 01/20/17 Range/Units 05:14 Sodium 139 (136-145) mEq/L Potassium 4.3 (3.5-4.5) mEq/L Chloride 107 (98-109) mEq/L Carbon Dioxide 22 (19-29) mEq/L BUN 8 (7-20) mg/dL Creatinine 1.61 H (0.57-1.11) mg/dL Glucose 75 (70-99) mg/dL Calcium 8.5 L (8.6-10.8) mg/dL Total Bilirubin 0.8 (0.2-1.2) mg/dL AST 35 H (5-34) Units/L ALT 59 H (0-55) Units/L Alkaline Phosphatase 282 H (38-126) Units/L Albumin 2.4 L (3.5-5.0) g/dL - Attending Attestation I reviewed the physical exam and assessment evaluation or with the resident. Has some nausea but no vomiting. Has a bowel movement but is taking still suffers. Mild brian-catheter pain to palpation with positive bowel sounds. We will add Reglan to see if this helps with her nausea in addition to the 2 and another medication that she has prescribed as needed. We will continue to follow labs and catheter drainage output.
--- NOTE | 2017-01-19 15:36 | Internal Med Progress Note ---
Date of Encounter: 01/19/17 Time of Encounter: 15:34 - Assessment and plan (1) Intra-abdominal abscess Current Visit: Yes Status: Acute Assessment and plan: s/p IR guided drainage of pus, has a drain, being followed by surgery. antibiotics has been changed to oral bactrim. afebrile, no leucocytosis. still has perisstnet pain, reglan added by surgery. drain to be continued for 7 days and f/u in 1 week with surgery (2) DVT prophylaxis Current Visit: Yes Status: Acute (3) Elevated liver function tests Current Visit: Yes Status: Acute Assessment and plan: seems to be improving will continue to monitor. repea LFTs at am. (4) S/P laparoscopic cholecystectomy Current Visit: Yes Status: Resolved Assessment and plan: s/p Laparoscopic cholecystectomy with post-operative bile leak s/p ERCP with Dr. Benson and placement of stent X 2 13 days ago - Time Spent With Patient 25 - 35 minutes - Subjective Interval history: seen at the bedside, reports still abdominal pain and unable to eat. s/p IR guided drainage of the GB fossa abscess , has a drain placed. surgery folllowing, on regular diet now. - Constitutional Vitals: Temp Pulse Resp BP Pulse Ox 98.4 F 67 14 109/68 97 01/19/17 12:34 01/19/17 12:34 01/19/17 12:34 01/19/17 12:34 01/19/17 12:34 General appearance: Present: cooperative, A&O X 3, pleasant, no acute distress, answers questions appropriately Exam: Head Head exam: Present: atraumatic, normal inspection - Eye Eye exam: Present: EOMI, PERRL. Absent: scleral icterus Pupils: Present: normal accommodation - ENT ENT exam: Present: mucous membranes dry, normal exam, normal oropharynx - Neck Neck exam general surgery: Present: full ROM, supple. Absent: lymphadenopathy - Respiratory Respiratory exam: Present: CTAB. Absent: rales, rhonchi, wheezes - Cardiovascular Cardiovascular exam: Present: RRR, +S1, +S2. Absent: diastolic murmur, systolic murmur - GI/Abdominal GI/Abdominal exam: Present: soft, mild tenderness on the right upper quadrant , has a drain in situ at the RUQ. Absent: hepatomegaly, mass, rebound, splenomegaly - Extremities Exam Extremities exam: Present: warm, radial pulses palpable and symetrical. Absent : calf tenderness, joint swelling - Back Exam Back exam: Present: normal inspection. Absent: CVA tenderness (L), CVA tenderness (R) - Neurological Exam Neurological exam: Present: alert, CN II-XII intact, oriented X3, no focal deficits - Psychiatric Psychiatric exam: Present: normal affect, normal mood - Skin Skin exam: Present: dry, warm. Absent: rash Internal Medicine: Result - Labs CBC & Chem 7: 01/18/17 05:58 01/18/17 05:58 - ABG Interpretation ABG results: PT/INR, D-dimer PT 14.7 Seconds (9.4-12.1) H 01/14/17 21:55 Consult Discharge Plan - Plan Referrals: Lyly Kearns CNP [Primary Care Provider] -
[2017-01-19] MEDS: 0.9 % Sodium Chloride 1,000 ML IVC SCH (16:44)
[2017-01-19] MEDS: *HR* OxyCODONE Immed Rel 5 MG TABLET PO PRN (21:14)
[2017-01-20 05:46] LABS: Basophils % 0.4 %; Eosinophils # 0.1 K/mcL (0.0-0.6); Eosinophils % 1.1 %; Hematocrit 30.4 % (35.3-44.9); Hemoglobin 9.6 g/dL (11.5-15.4); Immature Granulocytes % 1.1 % (0-4); Lymphocytes # 1.2 K/mcL (0.6-4.6); Lymphocytes % 13.1 %; Mean Corpuscular HGB Conc 31.6 g/dL (31.6-35.5); Mean Corpuscular Hemoglobin 27.7 pg (28.0-33.3); Mean Corpuscular Volume 87.6 fL (83.0-100.0); Mean Platelet Volume 9.1 fL (9.4-12.4); Monocytes # 0.7 K/mcL (0.0-1.3); Monocytes % 7.8 %; Neutrophils # 6.8 K/mcL (1.6-8.9); Platelet Count 337 K/mcL (140-400); Red Blood Count 3.47 M/mcL (3.82-4.97); Red Cell Distribution Width 13.4 % (11.5-14.5); Segmented Neutrophils % 76.5 %
[2017-01-20 06:01] LABS: Albumin 2.4 g/dL (3.5-5.0); Albumin/Globulin Ratio 0.6 (1.1-2.2); Bilirubin,Direct 0.5 mg/dL (0.0-0.5); Bilirubin,Indirect 0.3 mg/dL (0.0-1.2); Bilirubin,Total 0.8 mg/dL (0.2-1.2); Calcium 8.5 mg/dL (8.6-10.8); Globulin 3.7 g/dL (2.4-3.5); Potassium 4.3 mEq/L (3.5-4.5); Total Protein 6.1 g/dL (6.0-8.3)
[2017-01-20] MEDS: *HR* Heparin 5,000 UNIT/ML VIAL SQ SCH ×2 (06:11→18:05)
--- NOTE | 2017-01-20 08:52 | General Surgery Progress Note ---
<Judson Tovar - Last Filed: 01/20/17 11:49> Date of Encounter: 01/20/17 Time of Encounter: 07:40 - Assessment and Plan (1) Intra-abdominal fluid collection Current Visit: Yes Status: Acute Drain in place. Continue IV fluids. Continue on regular diet. Continue antibiotic therapy per hospitalist. Continue pain control. Increase activity as tolerated. Patient reports decreased nausea since Reglan has been added. Elevated creatinine today likely from Vancomycin. Recommend increasing IV fluids. (2) S/P laparoscopic cholecystectomy Current Visit: Yes Status: Resolved s/p Laparoscopic cholecystectomy with post-operative bile leak s/p ERCP with Dr. Benson and placement of stent X 2 14 days ago (3) Elevated liver function tests Current Visit: Yes Status: Acute Total bilirubin within normal limits today. LFTs continued to trend downward this morning. (4) Constipation Current Visit: Yes Status: Acute Continue colace BID Continue Reglan. Qualifiers: Constipation type: unspecified constipation type Qualified Code(s): K59.00 - Constipation, unspecified Subjective Patient reports: no new complaints, feels better, pain is less, voiding w/o difficulty, flatus, no bowel movement, afebrile Narrative: The patient reports that she feels much better today. She denies having any nausea and reports that her pain is less since 9pm last night. She was able to sleep well and is beginning to feel up to going back home. She denies having much of an appetite this morning, but states she usually doesn't eat breakfast. Objective Vital Signs - Last 8 Hours Temp Pulse Resp BP Pulse Ox 01/20/17 06:30 98.3 F 74 18 104/68 96 Intake and Output 01/19/17 01/20/17 01/20/17 23:59 07:59 15:59 Intake Total 1100 / 1100 1049 / 1049 Output Total 0 / 0 1010 / 1010 Balance 1100 / 1100 39 / 39 Intake: IV Fluids 1000 / 1000 849 / 849 0.9 % Sodium Chloride 1, 849 / 849 000 ML @ 60 mls/hr IVC . [id number] [facility] Rx#: [id number] KCl 20 mEq in 0.9% Sodium 1000 / 1000 Chloride 20 meq In 1,000 ml @ 80 mls/hr IVC . [id number] [facility] Rx#: [id number] Oral 100 / 100 200 / 200 Output: Urine 0 / 0 1000 / 1000 Wound Drainage 0 / 0 10 / 10 Upper Abdomen 0 / 0 10 / 10 Other: Meal Dinner Percent of Meal Consumed 0% Weight 88.082 kg Patient Weight 01/20/17 23:59 Weight 88.082 kg - General physical appearance well developed, well nourished, no distress - Eyes normal ocular movement - ENT normal mucosa, atraumatic, normocephalic - Neck Neck exam: trachea midline - Respiratory normal respiratory effort, clear to auscultation - Cardiovascular Cardiovascular exam: Present: RRR, no murmurs/rubs/gallops - Abdomen Abdomen: Present: bowel sounds present, soft, tender (mild tenderness around drain) - Integumentary no rash - Neurologic CN 2-12 grossly intact - Musculoskeletal normal posture - Psychiatric oriented to time, oriented to person, oriented to place, speech is normal, memory intact - Labs 01/20/17 05:14 01/20/17 05:14 Diabetes panel 01/20/17 Range/Units 05:14 Sodium 139 (136-145) mEq/L Potassium 4.3 (3.5-4.5) mEq/L Chloride 107 (98-109) mEq/L Carbon Dioxide 22 (19-29) mEq/L BUN 8 (7-20) mg/dL Creatinine 1.61 H (0.57-1.11) mg/dL Glucose 75 (70-99) mg/dL Calcium 8.5 L (8.6-10.8) mg/dL AST 35 H (5-34) Units/L ALT 59 H (0-55) Units/L Alkaline Phosphatase 282 H (38-126) Units/L Albumin 2.4 L (3.5-5.0) g/dL Calcium panel 01/20/17 Range/Units 05:14 Calcium 8.5 L (8.6-10.8) mg/dL Albumin 2.4 L (3.5-5.0) g/dL Pituitary panel 01/20/17 Range/Units 05:14 Sodium 139 (136-145) mEq/L Potassium 4.3 (3.5-4.5) mEq/L Chloride 107 (98-109) mEq/L Carbon Dioxide 22 (19-29) mEq/L BUN 8 (7-20) mg/dL Creatinine 1.61 H (0.57-1.11) mg/dL Glucose 75 (70-99) mg/dL Calcium 8.5 L (8.6-10.8) mg/dL Adrenal panel 01/20/17 Range/Units 05:14 Sodium 139 (136-145) mEq/L Potassium 4.3 (3.5-4.5) mEq/L Chloride 107 (98-109) mEq/L Carbon Dioxide 22 (19-29) mEq/L BUN 8 (7-20) mg/dL Creatinine 1.61 H (0.57-1.11) mg/dL Glucose 75 (70-99) mg/dL Calcium 8.5 L (8.6-10.8) mg/dL Total Bilirubin 0.8 (0.2-1.2) mg/dL AST 35 H (5-34) Units/L ALT 59 H (0-55) Units/L Alkaline Phosphatase 282 H (38-126) Units/L Albumin 2.4 L (3.5-5.0) g/dL Consult Discharge Plan - Plan Referrals: Lyly Kearns, BRICKLAYER TENDER [Primary Care Provider] - - Attending Attestation I examined this patient and my medical decision-making was reviewed with the PROMOTIONAL DEMONSTRATOR/PA/Advanced Practice Nurse/Resident Physician. I agree with the documented findings, disposition and treatment plan as described except to the extent set forth below. <Miguelito Sam - Last Filed: 01/21/17 06:56> Objective Vital Signs - Last 8 Hours Temp Pulse Resp BP Pulse Ox 01/21/17 04:51 97.9 F 72 18 97/62 94 L Intake and Output 01/20/17 01/20/17 01/21/17 15:59 23:59 07:59 Intake Total 1980 / 1980 333 / 333 637 / 637 Output Total 1550 / 1550 1206 / 1206 1035 / 1035 Balance 431 / 431 -873 / -873 -398 / -398 Intake: IV Fluids 381 / 381 133 / 133 637 / 637 0.9 % Sodium Chloride 1, 381 / 381 133 / 133 637 / 637 000 ML @ 60 mls/hr IVC . [id number] [facility] Rx#: [id number] Oral 1600 / 1600 200 / 200 Output: Urine 1550 / 1550 1200 / 1200 1025 / 1025 Wound Drainage Upper Abdomen Other: Weight 89.72 kg Patient Weight 01/21/17 23:59 Weight 89.72 kg - Labs 01/20/17 05:14 01/20/17 05:14 - Attending Attestation Evaluated the patient with the resident present. She has less nausea and has been passing some gas. She feels somewhat better. Mild pain to palpation at the drain site. Minimal drainage from the VÍCTOR drain. Continue with current diet. Continue with Reglan. To consider CT scan prior to removal of VÍCTOR drain, but I will leave that decision to Dr. Zhang/Leidy upon their return 01/20/17.
[2017-01-20] MEDS: 0.9 % Sodium Chloride 1,000 ML IVC SCH (09:45)
[2017-01-20] MEDS: Sulfamethoxazole/Trimeth DS 1 EACH TABLET PO SCH ×2 (09:46→22:19)
--- NOTE | 2017-01-20 13:05 | Internal Med Progress Note ---
Date of Encounter: 01/20/17 Time of Encounter: 13:02 - Assessment and plan (1) Intra-abdominal abscess Current Visit: Yes Status: Acute Assessment and plan: s/p IR guided drainage of pus, has a drain, being followed by surgery. antibiotics has been changed to oral bactrim. mild REA today, possible from vanco or bactrim,will continue to monitor. afebrile, no leucocytosis. reports that she feels better than yest.however still has some pain. will follow surgical recommendation (2) DVT prophylaxis Current Visit: Yes Status: Acute (3) Elevated liver function tests Current Visit: Yes Status: Acute Assessment and plan: seems to be improving will continue to monitor. (4) S/P laparoscopic cholecystectomy Current Visit: Yes Status: Resolved Assessment and plan: s/p Laparoscopic cholecystectomy with post-operative bile leak s/p ERCP with Dr. Benson and placement of stent X 2 13 days ago - Time Spent With Patient 25 - 35 minutes - Subjective Interval history: seen at the bedside, reports mild abdominal pain , nausea is better s/p IR guided drainage of the GB fossa abscess , has a drain placed. surgery folllowing, on regular diet now. - Constitutional Vitals: Temp Pulse Resp BP Pulse Ox 98.3 F 74 18 104/68 96 01/20/17 06:30 01/20/17 06:30 01/20/17 06:30 01/20/17 06:30 01/20/17 06:30 General appearance: Present: cooperative, A&O X 3, pleasant, no acute distress, answers questions appropriately Exam: Head Head exam: Present: atraumatic, normal inspection - Eye Eye exam: Present: EOMI, PERRL. Absent: scleral icterus Pupils: Present: normal accommodation - ENT ENT exam: Present: mucous membranes dry, normal exam, normal oropharynx - Neck Neck exam general surgery: Present: full ROM, supple. Absent: lymphadenopathy - Respiratory Respiratory exam: Present: CTAB. Absent: rales, rhonchi, wheezes - Cardiovascular Cardiovascular exam: Present: RRR, +S1, +S2. Absent: diastolic murmur, systolic murmur - GI/Abdominal GI/Abdominal exam: Present: soft, mild tenderness on the right upper quadrant , has a drain in situ at the RUQ. Absent: hepatomegaly, mass, rebound, splenomegaly - Extremities Exam Extremities exam: Present: warm, radial pulses palpable and symetrical. Absent : calf tenderness, joint swelling - Back Exam Back exam: Present: normal inspection. Absent: CVA tenderness (L), CVA tenderness (R) - Neurological Exam Neurological exam: Present: alert, CN II-XII intact, oriented X3, no focal deficits - Psychiatric Psychiatric exam: Present: normal affect, normal mood - Skin Skin exam: Present: dry, warm. Absent: rash Internal Medicine: Result - Labs CBC & Chem 7: 01/20/17 05:14 01/20/17 05:14 Labs: Short CBC 01/20/17 Range/Units 05:14 WBC 8.9 D (4.3-11.1) K/mcL Hgb 9.6 L (11.5-15.4) g/dL Hct 30.4 L (35.3-44.9) % Plt Count 337 (140-400) K/mcL Neutrophils # 6.8 (1.6-8.9) K/mcL BMP 01/20/17 05:14 Sodium 139 Potassium 4.3 Chloride 107 Carbon Dioxide 22 BUN 8 Creatinine 1.61 H Glucose 75 Calcium 8.5 L Liver Function 01/20/17 Range/Units 05:14 Total Bilirubin 0.8 (0.2-1.2) mg/dL Direct Bilirubin 0.5 (0.0-0.5) mg/dL AST 35 H (5-34) Units/L ALT 59 H (0-55) Units/L Alkaline Phosphatase 282 H (38-126) Units/L Albumin 2.4 L (3.5-5.0) g/dL - ABG Interpretation ABG results: PT/INR, D-dimer PT 14.7 Seconds (9.4-12.1) H 01/14/17 21:55 Consult Discharge Plan - Plan Referrals: Lyly Kearns CNP [Primary Care Provider] -
[2017-01-20] MEDS: Ondansetron 4 MG/2 ML VIAL IVP PRN (14:45)
[2017-01-20] MEDS: *HR* OxyCODONE Immed Rel 5 MG TABLET PO PRN ×2 (16:56→23:34)
[2017-01-21] MEDS: 0.9 % Sodium Chloride 1,000 ML IVC SCH (04:34)
[2017-01-21] MEDS: *HR* Heparin 5,000 UNIT/ML VIAL SQ SCH (06:21)
[2017-01-21 07:49] LABS: Basophils % 0.4 %; Eosinophils # 0.1 K/mcL (0.0-0.6); Eosinophils % 2.1 %; Hematocrit 28.4 % (35.3-44.9); Hemoglobin 9.2 g/dL (11.5-15.4); Immature Granulocytes % 1.3 % (0-4); Lymphocytes # 1.3 K/mcL (0.6-4.6); Lymphocytes % 18.8 %; Mean Corpuscular HGB Conc 32.4 g/dL (31.6-35.5); Mean Corpuscular Volume 86.6 fL (83.0-100.0); Mean Platelet Volume 9.3 fL (9.4-12.4); Monocytes # 0.6 K/mcL (0.0-1.3); Monocytes % 8.4 %; Neutrophils # 4.7 K/mcL (1.6-8.9); Platelet Count 297 K/mcL (140-400); Red Blood Count 3.28 M/mcL (3.82-4.97); Red Cell Distribution Width 13.3 % (11.5-14.5)
[2017-01-21 08:12] LABS: Calcium 8.1 mg/dL (8.6-10.8); Potassium 3.9 mEq/L (3.5-4.5)
--- NOTE | 2017-01-21 08:48 | General Surgery Progress Note ---
Date of Encounter: 01/21/17 Time of Encounter: 08:00 - Assessment and Plan (1) Intra-abdominal fluid collection Current Visit: Yes Status: Acute Drain in place. Continue IV fluids. Continue on regular diet. Continue antibiotic therapy per hospitalist. Continue pain control. Increase activity as tolerated. Creatinine is improving today. Currently 1.39, decreased from 1.61 yesterday. (2) S/P laparoscopic cholecystectomy Current Visit: Yes Status: Resolved s/p Laparoscopic cholecystectomy with post-operative bile leak s/p ERCP with Dr. Benson and placement of stent X 2 14 days ago (3) Elevated liver function tests Current Visit: Yes Status: Acute Total bilirubin within normal limits yesterday. LFTs continued to trend downward yesterday. (4) Constipation Current Visit: Yes Status: Acute Continue colace BID Continue Reglan. Still no bowel movement. Patient denies symptoms of abdominal distention and bloating. Qualifiers: Constipation type: unspecified constipation type Qualified Code(s): K59.00 - Constipation, unspecified Subjective Patient reports: no new complaints, tolerating a regular diet, voiding w/o difficulty, flatus, no bowel movement, afebrile Narrative: The patient reports that she is able to tolerate cold foods well. She did feel nauseated when her lunch meal tray arrived yesterday, but denies any vomiting. She states that the nausea was associated with the smell of the hot food. She denies having any bowel movements. She reports her pain is only a 1 at rest and up to 2 if she is moving around. She feels ready to be able to go home, but still wishes to have the drain pulled out before she goes home. Objective Vital Signs - Last 8 Hours Temp Pulse Resp BP Pulse Ox 01/21/17 07:16 98.4 F 75 16 102/72 94 L 01/21/17 04:51 97.9 F 72 18 97/62 94 L Intake and Output 01/20/17 01/21/17 01/21/17 23:59 07:59 15:59 Intake Total 333 / 333 637 / 637 Output Total 1206 / 1206 1035 / 1035 Balance -873 / -873 -398 / -398 Intake: IV Fluids 133 / 133 637 / 637 0.9 % Sodium Chloride 1, 133 / 133 637 / 637 000 ML @ 60 mls/hr IVC . [id number] ON LICENSE OF [facility] Rx#: [id number] Oral 200 / 200 Output: Urine 1200 / 1200 1025 / 1025 Wound Drainage Upper Abdomen Other: Weight 89.72 kg Patient Weight 01/21/17 23:59 Weight 89.72 kg - General physical appearance well developed, well nourished, no distress - Eyes normal ocular movement - ENT normal mucosa, atraumatic, normocephalic - Neck Neck exam: trachea midline - Respiratory normal respiratory effort, clear to auscultation - Cardiovascular Cardiovascular exam: Present: RRR, no murmurs/rubs/gallops - Abdomen Abdomen: Present: bowel sounds present, soft, non tender - Integumentary no rash - Neurologic CN 2-12 grossly intact - Musculoskeletal normal posture - Psychiatric oriented to time, oriented to person, oriented to place, speech is normal, memory intact - Labs 01/21/17 07:28 01/21/17 07:28 Diabetes panel 01/21/17 Range/Units 07:28 Sodium 138 (136-145) mEq/L Potassium 3.9 (3.5-4.5) mEq/L Chloride 107 (98-109) mEq/L Carbon Dioxide 23 (19-29) mEq/L BUN 8 (7-20) mg/dL Creatinine 1.39 H (0.57-1.11) mg/dL Glucose 82 (70-99) mg/dL Calcium 8.1 L (8.6-10.8) mg/dL Calcium panel 01/21/17 Range/Units 07:28 Calcium 8.1 L (8.6-10.8) mg/dL Pituitary panel 01/21/17 Range/Units 07:28 Sodium 138 (136-145) mEq/L Potassium 3.9 (3.5-4.5) mEq/L Chloride 107 (98-109) mEq/L Carbon Dioxide 23 (19-29) mEq/L BUN 8 (7-20) mg/dL Creatinine 1.39 H (0.57-1.11) mg/dL Glucose 82 (70-99) mg/dL Calcium 8.1 L (8.6-10.8) mg/dL Adrenal panel 01/21/17 Range/Units 07:28 Sodium 138 (136-145) mEq/L Potassium 3.9 (3.5-4.5) mEq/L Chloride 107 (98-109) mEq/L Carbon Dioxide 23 (19-29) mEq/L BUN 8 (7-20) mg/dL Creatinine 1.39 H (0.57-1.11) mg/dL Glucose 82 (70-99) mg/dL Calcium 8.1 L (8.6-10.8) mg/dL Consult Discharge Plan - Plan Referrals: Lyly Kearns, HUMANITIES AND LANGUAGES PROFESSOR [Primary Care Provider] - - Attending Attestation I examined this patient and my medical decision-making was reviewed with the SUPERVISOR RESEARCH SHOP/PA/Advanced Practice Nurse/Resident Physician. I agree with the documented findings, disposition and treatment plan as described except to the extent set forth below.
[2017-01-21] MEDS: Sulfamethoxazole/Trimeth DS 1 EACH TABLET PO SCH (09:56)
[2017-01-21 10:57] VITALS: BP 100/66
--- NOTE | 2017-01-21 14:21 | Discharge Summary ---
Date of Encounter: 01/21/17 Time of Encounter: 14:14 - Discharge Diagnosis (1) Intra-abdominal fluid collection Priority: Primary Status: Acute (2) S/P laparoscopic cholecystectomy Priority: Secondary Status: Resolved (3) Elevated liver function tests Priority: Secondary Status: Resolved (4) Constipation Priority: Secondary Status: Resolved Qualifiers: Constipation type: unspecified constipation type Qualified Code(s): K59.00 - Constipation, unspecified - Discharge Medications Prescriptions: Metoclopramide [Reglan] 10 mg PO QIDAC #120 tablet Sulfamethoxazole/Trimeth DS [Bactrim Ds] 1 each PO BID #20 tablet Home Medications: Cetirizine HCl [Zyrtec] 5 mg PO DAILY 07/23/15 [History] Levothyroxine [Synthroid] 175 mcg PO DAILY 07/23/15 [History] Docusate [Colace] 100 mg PO BID #30 capsule 01/03/17 [Rx] Ibuprofen [Motrin] 800 mg PO Q8HR #50 tablet 01/03/17 [Rx] OxyCODONE/APAP 5/325 [Percocet 5/325 MG] 1 each PO Q6HR PRN #30 tablet 01/03/17 [Rx] Metoclopramide [Reglan] 10 mg PO QIDAC #120 tablet 01/21/17 [Rx] Sulfamethoxazole/Trimeth DS [Bactrim Ds] 1 each PO BID #20 tablet 01/21/17 [Rx] Allergies/Adverse Reactions: Allergies cephalexin [From Keflex] Allergy (Verified 01/15/17 09:57) Hives loratadine [From Claritin] Allergy (Verified 01/15/17 09:57) Hiv General Surgery Exam Initial Vital Signs Temp Pulse Resp BP Pulse Ox 98.3 F 86 20 105/72 100 01/14/17 21:19 01/14/17 21:19 01/14/17 21:19 01/14/17 21:19 01/14/17 21:19 - General physical appearance well developed, well nourished, no distress - Eyes normal ocular movement - ENT normal mucosa, atraumatic, normocephalic - Neck trachea midline - Respiratory normal expansion, normal respiratory effort, clear to auscultation - Cardiovascular Cardiovascular exam: Present: RRR - Abdomen Abdomen general surgery: Present: bowel sounds present, soft, tender (improving) , wound (Pigtail drain with purulent drainage noted (20ml noted since midnight)) - Incision Incision: Present: clean and dry, intact - Integumentary Integumentary general surgery: Present: warm and dry - Neurologic Present: CN 2-12 grossly intact - Psychiatric Psychiatric general surgery: Present: appropriate, oriented to person, oriented to place, oriented to time, speech is normal, memory intact Date of admission: 01/15/17 05:55 Primary care physician: Lyly Kearns CNP Consults: 01/15/17 09:03 Consult to Wire Insulator [CONS] Routine Reason for SW Consult: readmission and discharge planning Discharging clinician: Annette Petersen Anticipated date of discharge: 01/21/17 - Patient Status Disposition: Home, Self-Care Condition: Good Functional capacity at discharge: independent ambulation Overall status at discharge: patient is progressing back to baseline - Discharge Instructions Follow Up With: Lyly Kearns CNP [Primary Care Provider] - Annette Petersen CNP [Advanced Practice Nurse] - 01/24/17 8:45 am Additional Instructions: #1 May shower, no tub bath #2 Wash around drains with soap and water and pat dry daily. Apply split 4X4 gauze and tape to secure daily after shower. Empty drain and record output daily. Bring records to follow-up appointment with Annette Petersen on 01/24/17. #3 No driving until off narcotics and able to safely react in the car #4 May climb stairs - Diet and Activity Activity: increase activity as tolerated Diet: advance to your usual diet - Hospital Course Hospital course: Ms. Cintron is a 26 year old female who is s/p Laparoscopic cholecystectomy and subsequent bile leak. She is s/p ERCP with Dr. Benson during her previous admission. She presents back to the hospital with complaints of increasing abdominal pain with associated nausea/vomiting. She did have a fluid collection noted in the RUQ. IR was consulted and a drain was placed. The cultures grew out MRSA and she has been treated with the appropriate IV antibiotics. She has been transitioned to PO antibiotics. Her nausea and vomiting has significantly improved with reglan. Her LFTs have trended to normal. Her vital signs are stable and she is afebrile. She is tolerating a diet without nausea/vomiting. We will begin discharge planning at this time and plan for outpatient follow-up in the surgery office later this week. - Time Spent with Patient Total time spent providing and/or coordinating discharge services: Less than 30 minutes Labs on day of discharge: Labs from last 24 hours 01/21/17 01/21/17 07:28 07:28 WBC 6.8 RBC 3.28 L Hgb 9.2 L Hct 28.4 L MCV 86.6 MCH 28.0 MCHC 32.4 RDW 13.3 Plt Count 297 MPV 9.3 L Immature Gran % 1.3 Seg Neutrophils % 69.0 Lymphocytes % 18.8 Monocytes % 8.4 Eosinophils % 2.1 Basophils % 0.4 Neutrophils # 4.7 Lymphocytes # 1.3 Monocytes # 0.6 Eosinophils # 0.1 Basophils # 0.0 Sodium 138 Potassium 3.9 Chloride 107 Carbon Dioxide 23 BUN 8 Creatinine 1.39 H Est GFR ( Amer) 55 L Est GFR (Non-Af Amer) 45 L BUN/Creatinine Ratio 6 Glucose 82 Calculated Osmolality 283 Calcium 8.1 L - Impressions ITS Impressions Retroperitoneal Abscess Drainage 01/16/17 00:00 IMPRESSION: Successful CT guided placement of gallbladder fossa/liver abscess drainage catheter. D/ / 01/16/2017 14:24:58 Alaina Carrion MD / [email or web address] Interpreting Provider: Alaina Carrion MD
[2017-01-21] MEDS: Ondansetron 4 MG/2 ML VIAL IVP PRN (14:37)
--- NOTE | 2017-01-21 17:08 | Event Note ---
Date of Encounter: 01/21/17 Time of Encounter: 17:07 Patient has been discharged today in stable condition by surgical service. She is being discharged with the drain and will follow-up with surgery as outpatient for the removal. She reports feeling better, abdominal pain has subsided and nausea and vomiting has improved. Antibiotics were changed to oral Bactrim, she will go home today on oral antibiotics.
== END 2017-01-21 15:29 | disposition home or self-care (01) | DRG 261 ==
LOC: 3ANU 21:09 → EMEROO 21:09 → 3ANU 01-15 02:45
PROVIDERS: ADMIT Internal Medicine; ATTEND Internal Medicine Endocrinology, Diabetes & Metabolism